=== PATIENT | male | born 1945 | race Caucasian/White ===

== ENCOUNTER 2018-02-27 12:42 | Observation (INO) | payer MEDICARE ==
[~2018-02-27 12:42] MED LIST: Iopamidol 370 76% 100 ML VIAL ONE
[2018-02-27] MEDS ORDERED: Nitroglycerin 2% Ointment 1 INCH/1 GM Packet ONE (13:12)
[2018-02-27 13:19] LABS: Band 1 % (5-11); Eosinophils 1 % (0-10); Hemoglobin 14.8 g/dL (14.0-18.0); Lymphocytes 13 % (21-51); MDiff Complete? YES; Mean Corpuscular HGB CONC 32.9 g/dL (32.0-36.0); Mean Corpuscular Hemoglobin 30.1 pg (27.0-31.0); Mean Corpuscular Volume 91.4 fL (78.0-98.0); Mean Platelet Volume 8.7 fL (7.4-10.4); Monocytes 8 % (0-10); Neutrophil 70 % (42-75); PLT Morphology Comment Appears Adequate; Platelet Count 229 thou/uL (130-400); RBC Distribution Width 12.4 % (11.5-14.5); Reactive Lymphocytes 6 % (0-10); Red Blood Cell (RBC) Count 4.93 mill/uL (4.70-6.10); White Blood Cell (WBC) Count 7.5 thou/uL (4.8-10.8)
[2018-02-27 13:25] LABS: ALT (SGPT) 13 U/L (8-55); AST (SGOT) 13 U/L (5-34); Albumin 3.8 g/dL (3.4-4.8); Alkaline Phosphatase 50 U/L (40-150); Anion Gap 10 mmol/L (10-20); BUN (Urea Nitrogen) 10 mg/dL (8.4-25.7); Bilirubin, Total 0.5 mg/dL (0.2-1.2); CKMB 1.6 ng/mL (0-6.6); Calc. Creatinine Clearance 0 mL/min (70-130); Calcium 9.2 mg/dL (7.8-10.44); Carbon Dioxide 25 mmol/L (23-31); Chloride 108 mmol/L (98-107); Estimated GFR-MDRD Greater than 90; Globulin 2.8 g/dL (2.4-3.5); Glucose 124 mg/dL (80-115); Lipase 13 U/L (8-78); Potassium 3.9 mmol/L (3.5-5.1); Protein, Total 6.6 g/dL (5.8-8.1); Sodium 139 mmol/L (136-145); Troponin I Less than 0.010 ng/mL (< 0.028)
[2018-02-27] MEDS ORDERED: diphenhydrAMINE 50 MG/ML VIAL ONE (13:29)
[2018-02-27] MEDS ORDERED: methylPREDNISolone Sod Succ/PF 125 MG/2 ML VIAL ONE (13:29)
[2018-02-27] MEDS ORDERED: Water For Inject, Bacteriostat 30 ML ONE (13:29)
[2018-02-27] MEDS ORDERED: Famotidine/PF 20 mg/2ml Vial ONE (13:29)
--- NOTE | 2018-02-27 13:59 | RAD ---
CHEST 1 VIEW: Date: 02/27/18 HISTORY: Chest pain. COMPARISON: Radiograph dated 07/29/13. FINDINGS: Multiple midline sternotomy wires. No confluent air space consolidation, pneumothorax, or effusion. N o acute osseous abnormality. IMPRESSION: No acute intrathoracic abnormality. POS: [facility]
--- NOTE | 2018-02-27 15:39 | CT ---
CT ANGIOGRAM OF THORACIC AND ABDOMINAL AORTA: HISTORY: Evaluate for aortic dissection. Chest pain. COMPARISON: None. TECHNIQUE: A CT angiogram of the thoracic and abdominal aorta is performed in the axial plane. Three-dimensiona l reformatted images are submitted for interpretation. FINDINGS: CHEST: No mediastinal mass, lymphadenopathy, or hematoma. heart size is within normal limits. No p ericardial fluid. There is evidence of previous CABG. Trachea and central bronchi are patent. There is scarring in the right upper lobe. Dependent atelec tatic changes. No consolidation or masses. ABDOMEN: Unremarkable gallbladder. Appropriate arterial phase enhancement of the liver, spleen, pelayo creas, and adrenal glands. No gastrohepatic, retrocrural, or periportal lymphadenopathy. No mesenteric mass, lymphadenopathy, free air, or free fluid. Symmetric attenuation of the psoas muscles. Limited evaluation of the alimentary canal by lack of oral contrast. Fat attenuation in the third po rtion of the duodenum and in the fourth portion of the duodenum, likely due to intraluminal lipomas. No evidence of bowel obstruction. The ileocecal junction is normal. Normal caliber appendix. The visualized colon is unremarkable. CT ANGIOGRAM: The ascending thoracic aorta measures 3.7 cm anterior-posterior x 3.8 cm mediolateral. The aortic arch, descending thoracic aorta, abdominal aorta, and aortic bifurcation have an overall normal caliber. No periaortic fat stranding. There is mild atherosclerosis involving the distal ab dominal aorta and the aortic bifurcation. The aortic root is unremarkable. 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 The visualized subclavian arteries and the great vessels of the neck ar e unremarkable. Of note, the right vertebral artery is not appreciated. There is appropriate enhancement in the luminal diameter of the celiac artery origin, the superior me senteric artery origin, the inferior mesenteric artery origin, and the bilateral renal artery ostia. Solitary left and right renal artery. Though there is appropriate enhancement in the luminal diameter of the superior mesenteric artery alex gin, there is a significant noncalcified plaque in the proximal superior mesenteric artery with resul tant moderate to severe stenosis, best demonstrated on the sagittal images. Distal to this plaque, t he branches of the superior mesenteric artery are patent. There are degenerative changes of the spine with vacuum disk phenomenon at multiple levels. IMPRESSION: 1. No evidence of aneurysm or dissection. 2. 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 POS: [facility]
[2018-02-27 17:03] LABS: Troponin I Less than 0.010 ng/mL (< 0.028)
[2018-02-27 18:17] VITALS: BMI 32.3
[2018-02-27] MEDS ORDERED: Nitroglycerin 0.4 MG TAB (25 Tab Bottle) SL PRN (18:38)
[2018-02-27] MEDS ORDERED: Ondansetron HCl/PF 4 MG/2 ML Vial IVP PRN (18:47)
[2018-02-27] MEDS ORDERED: Acetaminophen 325 MG TAB PO PRN (18:47)
[2018-02-27] MEDS ORDERED: Ondansetron ODT 4 MG TAB PO PRN (18:47)
[2018-02-27] MEDS ORDERED: Enoxaparin Sodium 40 MG/0.4 ML SYRINGE SC SCH (18:47)
[2018-02-27] MEDS ORDERED: traMADol HCl 50 MG TAB PO PRN ×2 (19:14→19:15)
[2018-02-27 19:21] LABS: Bilirubin Negative (Negative); Blood, Urine Large (Negative); Clarity CLEAR (Clear); Glucose, Urine (Dipstick) Negative (Negative); Leukocyte Negative (Negative); Nitrite Negative (Negative); Protein, Urine (Dipstick) Negative (Neg-Trace); Urobilinogen 0.2 mg/dL (0.2-1.0); pH, Urine 5.5 (5.0-9.0)
[2018-02-27 19:23] LABS: Bacteria/HPF None Seen HPF (None Seen); Hyaline Casts/LPF 0-3 HYALINE CAST LPF (0-3 Hyaline); RBC/HPF GREATER THAN 50-TNTC HPF (0-3); Squamous Epithelial None Seen HPF (0-3); WBC/HPF 0-3 HPF (0-3)
[2018-02-27 20:01] LABS: CKMB 1.7 ng/mL (0-6.6); Troponin I Less than 0.010 ng/mL (< 0.028)
[2018-02-27] MEDS ORDERED: Polyethylene Glycol 3350 17 GM Packet PO PRN (20:34)
[2018-02-27] MEDS ORDERED: Nitroglycerin 2% Ointment 1 INCH/1 GM Packet TOP SCH (23:59)
[2018-02-28] MEDS ORDERED: Levothyroxine Sodium 125 MCG TAB PO SCH (06:00)
[2018-02-28 06:34] LABS: #Lymphocytes 0.9 thou/uL (1.20-3.40); #Monocytes 0.1 thou/uL (0.11-0.59); #Neutrophils 7.1 thou/uL (1.40-6.50); %Basophils 0.3 % (0.0-1.0); %Eosinophils 0.1 % (0.0-10.0); %Lymphocytes 10.9 % (21.0-51.0); %Monocytes 1.2 % (0.0-10.0); %Neutrophils 87.5 % (42.0-75.0); Hemoglobin 14.9 g/dL (14.0-18.0); Mean Corpuscular HGB CONC 32.7 g/dL (32.0-36.0); Mean Corpuscular Hemoglobin 31.1 pg (27.0-31.0); Mean Corpuscular Volume 95.2 fL (78.0-98.0); Mean Platelet Volume 9.3 fL (7.4-10.4); Platelet Count 243 thou/uL (130-400); RBC Distribution Width 13.2 % (11.5-14.5); Red Blood Cell (RBC) Count 4.77 mill/uL (4.70-6.10); White Blood Cell (WBC) Count 8.2 thou/uL (4.8-10.8)
[2018-02-28 06:44] LABS: Anion Gap 13 mmol/L (10-20); BUN (Urea Nitrogen) 14 mg/dL (8.4-25.7); Calc. Creatinine Clearance 110 mL/min (70-130); Calcium 9.3 mg/dL (7.8-10.44); Carbon Dioxide 24 mmol/L (23-31); Cardiac Risk 5.5 (Less than 4.5); Chloride 107 mmol/L (98-107); Cholesterol 285 mg/dl (< 200 Desired); Estimated GFR-MDRD 89; Glucose 150 mg/dL (80-115); HDL Cholesterol 52 mg/dL (>60 Neg Risk); LDL Cholesterol, Calculated 213 mg/dL; Magnesium 2.3 mg/dL (1.6-2.6); Potassium 4.1 mmol/L (3.5-5.1); Sodium 140 mmol/L (136-145); Triglycerides 102 mg/dL (Less than 150)
[2018-02-28 06:47] LABS: CKMB 1.1 ng/mL (0-6.6); Troponin I Less than 0.010 ng/mL (< 0.028)
[2018-02-28 08:03] VITALS: TEMP 98.6
[2018-02-28] MEDS ORDERED: Clopidogrel Bisulfate 75 MG TAB PO SCH (09:00)
[2018-02-28] MEDS ORDERED: Enoxaparin Sodium 40 MG/0.4 ML SYRINGE SC SCH (09:00)
[2018-02-28] MEDS ORDERED: Aspirin 81 mg Enteric Coated Tablet PO SCH (09:00)
[2018-02-28] MEDS ORDERED: Amlodipine 5 MG TAB PO SCH (09:00)
[2018-02-28] MEDS ORDERED: Finasteride 5 MG TAB PO SCH (09:00)
[2018-02-28 10:41] VITALS: BP 140/76
--- NOTE | 2018-02-28 10:47 | HP ---
DATE OF ADMISSION: 02/27/2018 PRIMARY CARE PHYSICIAN: Monica Huerta M.D. PRIMARY ROLL EXAMINER: Dr. Rafa Medrano. TIME OF SERVICE: 18:00. CHIEF COMPLAINT: Chest pain. HISTORY OF PRESENT ILLNESS: Mr. Damian is a pleasant 72-year-old white male with history of known c oronary artery disease. Last heart catheterization was back in 2013. He had a diffuse disease that was not amenable to stenting. Medical management was initiated. He had last stress test about 1 yea r ago at Dr. Medrano' his office that was "clean." The patient with normal state of health. He de cided to go out to mow the grass and after coming back in developed some chest pressure. About 30 mi nutes later, he developed some drenching cold sweats, took a sublingual nitroglycerin and completely went away. He did well through Tuesday, however, on Tuesday started having more chest pressure. That persisted until Tuesday morning, so he decided into this hospitalization ER for evaluation. There workup was negative and we were called for admission. On arrival, the patient is pain free except for occasional episodes, short lasting and self-limited t hat feels like a 10 pound weight sitting on his chest. Denies any shortness of breath, but does have known anxiety and feels like that might be a panic attack. No other current complaints. Denies fevers or chills. No nausea or vomiting. No diarrhea or constipation. The patient does comp caitlin of some flank tenderness on the left with some burning sensation that comes around to the left. He started having a little bit of blood in his urine when he arrived to the [facility] ER . No history of renal stones. PAST MEDICAL HISTORY: 1. Coronary artery disease. 2. History MO in 2013. 3. Hypothyroidism. 4. Hyperlipidemia. 5. Hypertension. 6. Cerebrovascular disease with stroke x3 in 2000 and 2003. 7. Anxiety. PAST SURGICAL HISTORY: Coronary artery bypass grafting x5 vessels in 2006. PTCA 07/2013. Last PET stress test was out one year ago was negative. HOME MEDICATIONS: Isosorbide mononitrate 60 mg p.o. daily, aspirin 81 mg daily, levothyroxine 125 mg daily, metoprolol XL 25 mg p.o. b.i.d., sublingual nitroglycerin p.r.n., Protonix 40 mg daily, trama dol half tablet every 6 hours as needed, amlodipine 5 mg daily, finasteride 5 mg daily, Plavix 75 mg daily and Ranexa 500 mg p.o. b.i.d. ALLERGIES: IODINE causes hives, but tolerated CT angio without problems. FAMILY HISTORY: Negative for clotting or bleeding disorder. No immune dysfunction or premature niranjan nary disease. SOCIAL HISTORY: Significant for past tobacco, but quit more than 10 years ago. Lives at home with h is . REVIEW OF SYSTEMS: All systems reviewed and negative except as stated in HPI. PHYSICAL EXAMINATION: VITAL SIGNS: Temperature 97.8, pulse 69, blood pressure 153/70, respiratory rate 12, satting 97% on room air. GENERAL: He is awake. He is alert. He is oriented x3. Well-developed, well-nourished older white male who appears age appropriate. He appears to be zero distress. HEENT: Normocephalic, atraumatic. Pupils equal, round, react bilaterally. Mucous membranes moist. No visible lesion. No thrush. NECK: Supple. No lymphadenopathy, no JVD, no thyromegaly. He has no delay carotid upstrokes. He h as no bruits. LUNGS: Clear. No wheezes, no rales, no rhonchi. Good symmetrical chest excursion. No prolonged ex piratory phase. CARDIOVASCULAR: Normal S1, S2. No S3, S4. Does have holosystolic murmurs present at the apex and t he right lower sternal border. ABDOMEN: Soft, it is nontender, nondistended, no mass, no organomegaly. He has no CVA tenderness. EXTREMITIES: No cyanosis, no clubbing. He has no edema. I cannot palpate pulses. His feet are war m. SKIN: Warm, moist, and well perfused. Capillary refill 2-3 seconds. He has no rash or lesions. MUSCULOSKELETAL: Normal to inspection. Large joints appear normal. There is no evidence of inflamm ation or palpable effusion. NEUROLOGIC: Cranial nerves II-XII are grossly intact. There are no focal deficits. Normal speech a nd 5/5 strength in all 4 extremities. LABORATORY DATA AND IMAGING DATA: Sodium 139, potassium 3.9, chloride 108, bicarbonate 25, BUN 10, c reatinine 0.78, glucose 124, calcium 9.2. Liver function completely within normal limits. CBC showed white count 7.5, hemoglobin 14.8, hematocrit 45.1, platelet count is 229,000. He has a no rmal differential. CK-MB was normal at 1.6, troponin I was undetectable x2 less than 0.010. CT mckenzie ogram was negative. No mention of any renal issues. ASSESSMENT AND PLAN: 1. Chest pain. The patient with known coronary artery disease, inoperable per catheterization on . We placed him in observation with serial cardiac biomarkers. Dr. Medrano was present in morning. We will schedule him for a stress test in case he needs one however, I think given his hi story of known disease that this may not be needed. We will continue his home medications otherwise and follow up with Dr. Medrano' recommendations. 2. Hypothyroidism. Continue with levothyroxine. 3. Hypertension. Continue his home medications. 4. Hyperlipidemia. He is not currently on any statin. We will check a fasting lipid profile in the morning. No history of cerebrovascular disease. 5. History of anxiety. 6. Benign prostatic hypertrophy on finasteride. 7. Acute hematuria. We will get a urinalysis to quantitate. Patient does not have any clots or dif ficulty urinating, passes normal. 8. BPH symptoms. We will likely leave this to outpatient workup, mostly develops ralph bleeding.
--- NOTE | 2018-02-28 10:51 | DIS ---
PRIMARY CARE PHYSICIAN: Dr. Monica Huerta PRIMARY PHYSICIAN SCRIBE: Dr. Rafa Medrano DATE OF ADMISSION: 02/27/2018 DATE OF DISCHARGE: 02/28/2018 DISCHARGE DIAGNOSES: 1. Chest pain. 2. Coronary artery disease. 3. Hypothyroidism. 4. Hyperlipidemia. 5. Hypertension. 6. History of cerebrovascular accident in the past. 7. Anxiety. CONSULTATIONS: None. PROCEDURES: None. BRIEF HISTORY AND PHYSICAL: Mr. Damian is a 72-year-old gentleman who developed chest pain 2 days p rior to admission. The initial episode lasted a short period of time, resolved and recurred on the d ay of admission so he came to the ER. Workup in the ER was negative. We were called for admission. HOSPITAL COURSE: The patient was seen and examined by me on transfer from [facility] ER t o the observation unit. He had no further chest pain. He was observed overnight. Telemetry was neg ative and serial cardiac biomarkers were completely undetectable. I spoke with Dr. Medrano this mo rning and reviewed the patient's inoperable coronary artery disease. He recommended medical manageme nt and follow up outpatient if he needed further workup or intervention that he would need a referral to [facility]. At this point, we recommend no further stress testing. The patient was stable for discharge with outpatient followup. PHYSICAL EXAMINATION: The patient was seen and examined on the day of discharge. Discharge plan and disposition was discussed with the patient face to face at the bedside. DISCHARGE MEDICATIONS: 1. Isosorbide mononitrate 60 mg daily. 2. Amlodipine 5 mg daily. 3. Aspirin 81 mg daily. 4. Plavix 75 mg daily. 5. Proscar 5 mg daily. 6. Levothyroxine 125 mcg daily. 7. Metoprolol succinate 25 mg p.o. b.i.d. 8. Sublingual nitro p.r.n. 9. Protonix 40 mg daily. 10. Ranexa 500 mg p.o. b.i.d. 11. Tramadol p.r.n. FOLLOWUP APPOINTMENTS: 1. Primary care physician in a week. 2. Dr. Medrano in 2-3 weeks. DISCHARGE ACTIVITY: Per cardiopulmonary limits. DISCHARGE DIET: Heart healthy recommended. DISCHARGE CONDITION: Stable. DISCHARGE DISPOSITION: He is being discharged home via private vehicle.
== END 2018-02-28 12:12 | disposition home or self-care (01) ==
LOC: SCSER 12:42 → 2SW 16:26
PROVIDERS: ADMIT Internal Medicine Infectious Disease; ATTEND Internal Medicine Infectious Disease
DX: R07.89 Other chest pain (principal); I25.10 Atherosclerotic heart disease of native coronary artery without angina pectoris; I25.2 Old myocardial infarction; E03.9 Hypothyroidism, unspecified; E78.5 Hyperlipidemia, unspecified; F41.9 Anxiety disorder, unspecified; N40.0 Benign prostatic hyperplasia without lower urinary tract symptoms; R31.9 Hematuria, unspecified; Z87.891 Personal history of nicotine dependence; Z86.73 Personal history of transient ischemic attack (TIA), and cerebral infarction without residual deficits; Z79.82 Long term (current) use of aspirin; Z79.02 Long term (current) use of antithrombotics/antiplatelets; Z79.899 Other long term (current) drug therapy; Z91.041 Radiographic dye allergy status; Z95.1 Presence of aortocoronary bypass graft; Z98.890 Other specified postprocedural states
CPT/HCPCS: 71045; 71275; 80048; 80053; 80061; 81001; 82553 ×3; 83690; 83735; 84484 ×3; 85025 ×2; 93005; 94760; 96374; 96375; 99285; G0378 ×2; 36415; J1200; J2930; S0028

== ENCOUNTER 2018-04-17 13:17 | Outpatient (CLI) | payer MEDICARE ==
[2018-04-17] MEDS ORDERED: Iopamidol 370 76% 100 ML VIAL ONE (15:05)
--- NOTE | 2018-04-17 15:59 | CT ---
CT ARTERIOGRAM NECK WITH IV CONTRAST AND 3D MIP IMAGING: HISTORY: Vascular disease. Carotid stenosis. FINDINGS: Postoperative changes of the mediastinum with cardiac bypass procedure are partially visualized. The re is an aberrant origin of the right subclavian artery, arising from the distal aortic arch and pass ing posterior to the esophagus. Good contrast flow into the carotid arteries and left vertebral lynnette ry. Significant plaque within the proximal left vertebral artery with approximately 50% stenosis at the level of T2. Minimal flow into the right vertebral artery. At the right carotid bifurcation, there is prominent calcification and noncalcified plaque with a dylan rt-segment focus of greater than 90% stenosis. Good flow into the intracranial system. On the left, prominent plaque and calcification at the carotid bifurcation. Short-segment focus of a pproximately 70% stenosis. IMPRESSION: 1. Prominent atherosclerosis. Stenoses at each proximal internal carotid artery, very severe on the right and moderate to severe on the left. 2. Low-grade stenosis of the proximal left vertebral artery. 3. 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 POS: [facility]
== END 2018-04-17 13:18 | disposition home or self-care (01) ==
LOC: CT 13:17
PROVIDERS: ATTEND Thoracic Surgery (Cardiothoracic Vascular Surgery)
DX: I65.23 Occlusion and stenosis of bilateral carotid arteries (principal); I70.90 Unspecified atherosclerosis; I65.02 Occlusion and stenosis of left vertebral artery
CPT/HCPCS: 70498; 82565

== ENCOUNTER 2018-11-19 18:51 | Inpatient (IN) | payer MEDICARE ==
[2018-11-19 19:08] LABS: #Basophils 0.1 thou/uL (0.0-0.2); #Eosinphils 0.3 thou/uL (0.0-0.7); #Lymphocytes 1.4 thou/uL (1.20-3.40); #Monocytes 0.7 thou/uL (0.11-0.59); #Neutrophils 6.5 thou/uL (1.40-6.50); %Basophils 0.6 % (0.0-1.0); %Eosinophils 3.8 % (0.0-10.0); %Lymphocytes 15.4 % (21.0-51.0); %Monocytes 7.8 % (0.0-10.0); %Neutrophils 72.5 % (42.0-75.0); Hemoglobin 15.5 g/dL (14.0-18.0); Mean Corpuscular HGB CONC 33.9 g/dL (32.0-36.0); Mean Corpuscular Hemoglobin 31.1 pg (27.0-31.0); Mean Corpuscular Volume 91.9 fL (78.0-98.0); Mean Platelet Volume 9.4 fL (7.4-10.4); Platelet Count 197 thou/uL (130-400); RBC Distribution Width 12.8 % (11.5-14.5); Red Blood Cell (RBC) Count 4.97 mill/uL (4.70-6.10)
[2018-11-19 19:15] LABS: PTT 25.8 SEC (22.9-36.1)
[2018-11-19 19:16] LABS: Prothrombin Time 12.8 SEC (12.0-14.7)
[2018-11-19 19:21] LABS: ALT (SGPT) 14 U/L (8-55); AST (SGOT) 14 U/L (5-34); Albumin 4.2 g/dL (3.4-4.8); Alkaline Phosphatase 57 U/L (40-150); Anion Gap 13 mmol/L (10-20); BUN (Urea Nitrogen) 12 mg/dL (8.4-25.7); Bilirubin, Total 0.4 mg/dL (0.2-1.2); CK (CPK) 102 U/L (30-200); Calc. Creatinine Clearance 0 mL/min (70-130); Calcium 9.5 mg/dL (7.8-10.44); Carbon Dioxide 23 mmol/L (23-31); Chloride 103 mmol/L (98-107); Estimated GFR-MDRD 80; Glucose 152 mg/dL (83-110); Potassium 3.9 mmol/L (3.5-5.1); Protein, Total 7.2 g/dL (5.8-8.1); Sodium 135 mmol/L (136-145)
[2018-11-19 19:46] LABS: CKMB 3.6 ng/mL (0-6.6)
--- NOTE | 2018-11-19 19:49 | RAD ---
CHEST ONE VIEW: HISTORY: Chest pain. COMPARISON: Chest radiograph from 02/27/2018. FINDINGS: Heart size is mildly enlarged. There is mild atelectasis in both lung bases. No pneumothorax. No e ffusion. No acute osseous abnormality. Multiple midline sternotomy wires. IMPRESSION: No acute intrathoracic abnormality. POS: [facility]
[2018-11-19] MEDS ORDERED: Mag-Al 1200 mg/1200 mg/30 ML UDCUP ONE (19:58)
[2018-11-19] MEDS ORDERED: Lidocaine Viscous Sol 2% 15 ml UD Cup ONE (19:58)
[2018-11-19] MEDS ORDERED: Ondansetron PF 4 MG/2 ML Vial IVP PRN (20:09)
[2018-11-19] MEDS ORDERED: Ondansetron ODT 4 MG TAB PO PRN (20:09)
[2018-11-19] MEDS ORDERED: Acetaminophen 325 MG TAB PO PRN (20:09)
[2018-11-19 21:43] VITALS: BMI 33.7
[2018-11-19] MEDS ORDERED: Heparin 10,000 UNITS/ 10 ML VIAL ONE (22:25)
[2018-11-19] MEDS ORDERED: Metoprolol Tartrate 5 MG/5 ML VIAL ONE (22:25)
[2018-11-19] MEDS ORDERED: Nitroglycerin 50 MG/250 ML BOT ONE (22:25)
[2018-11-19] MEDS ORDERED: Nitroglycerin 50 MG/250 ML BOT 250 ML IVPB SCH (22:30)
[2018-11-19] MEDS ORDERED: Heparin 10,000 UNITS/ 10 ML VIAL SLOW IVP SCH (22:30)
[2018-11-19] MEDS ORDERED: Heparin 25,000 units/D5W 500 ML IV SCH (22:30)
--- NOTE | 2018-11-19 22:44 | HP ---
PRIMARY CARE DOCTOR: Mitch Arora MD. CODE STATUS: Full code. TIME OF EVALUATION: 9:00 p.m. CHIEF COMPLAINT: Ongoing chest pain. HISTORY OF PRESENT ILLNESS: This is a 73-year-old male patient who has significant coronary artery disease, status post CABG and multiple interventions with chronic angina. Today, he came with ongoing chest pain that started around 1:00 p.m. with no clear triggers, no alleviating factors. The patient came to the ER, had some significant EKG changes. Dr. Arreola has seen the patient due to severe chronic coronary artery disease. No further intervention is the best choice for this patient. The patient has been placed on nitroglycerin drip and heparin. We will continue for now. We will place the patient in ICU and will continue to monitor overnight. We will follow recommendation with Dr. Arreola if symptoms are severe. REVIEW OF SYSTEMS: CONSTITUTIONAL: No fever, chills, generalized weakness. RESPIRATORY: No cough, sputum production, or shortness of breath. CARDIOVASCULAR: The patient has chest pain. No palpitations. GASTROINTESTINAL: No nausea, no vomiting, diarrhea, or abdominal pain. DIGITAL MEDIA ASSOCIATE: No dizziness, headache, or feeling lightheaded. GENITOURINARY: No burning on urination. EXTREMITIES: No leg swelling. All other systems were reviewed and negative except for the findings mentioned above. PAST MEDICAL HISTORY: Positive for coronary artery disease, hypothyroidism, hyperlipidemia, hypertension, and stroke. PAST SURGICAL HISTORY: Cardiac cath in the past, CABG x5 vessels. PSYCHIATRIC HISTORY: Includes anxiety. FAMILY HISTORY:Reviewed and no contributory for current presentation. SOCIAL HISTORY: No alcohol or drugs. The patient was a former smoker, quit more than 10 years ago. He lives at home with family. KNOWN ALLERGIES: 1. Iodine. 2. Shellfish. REPORTED MEDICATIONS: 1. Levothyroxine. 2. Metoprolol. 3. Aspirin. 4. Atorvastatin. 5. Isosorbide. 6. Tramadol. 7. Pantoprazole. 8. Ranexa. 9. Plavix. 10. Finasteride. 11. Nitroglycerin. PHYSICAL EXAMINATION: VITAL SIGNS: Blood pressure 183/105 with heart rate of 76, respiratory rate was 18, temperature 98.1 pain was 8, oxygen saturation was 99% on room air. GENERAL: The patient is alert, oriented, and not in acute distress. HEENT: Eyes, normal conjunctivae. ENT: Moist oral mucosa. Anicteric. NECK: No JVD. RESPIRATORY: Bilateral air entry. No rales. No wheezes. Symmetric expansion. CARDIOVASCULAR: Normal rate, regular rhythm. No murmurs. No edema. ABDOMEN: Soft. Normal bowel sounds. MUSCULOSKELETAL: Baseline range of motion and strength. No tenderness. SKIN: Warm, intact. No pallor. No rash. No redness. Capillary refill seems to be intact. NEURO: No evidence of any new focal weakness. Cranial nerves seem to be intact , PSYCH: Patient is in good mood. No anxiety. Optimal judgment. IMAGING STUDIES: EKG was reviewed. The patient has complete RBBB, ST elevation in lead 3, aVF with reciprocal changes. Chest x-ray was reviewed. The patient has no acute intrathoracic abnormalities. LABORATORY DATA: Reviewed. The patient has white count of 9.0, hemoglobin 15.5 , MCV 91.9, platelet count 197. PT 12.8, INR 1.0, PTT 25.8. Chemistries: Sodium 135, potassium 3.9, chloride 103, carbon dioxide 23, anion gap 13, BUN 12, creatinine 0.93, GFR 80, glucose 152, and calcium 9.5. LFTs were negative. Troponin 0.030. ASSESSMENT AND PLAN: The patient will be placed in the hospital with the following medical problems: 1. Acute coronary syndrome. possible stemi, The patient has angina; however, he has significant chronic coronary artery disease.as discussed with Dr. Arreola, we will treat him medically since there is not much that can be done with intervention at this point. We will follow recommendations. We will continue nitroglycerin and heparin. We will place the patient in ICU, reconcile home medications. 2. Hyperlipidemia. Reconcile home medications. Low-cholesterol diet is advised. 3. Hyponatremia, sodium 135. This is mild, no need for any acute intervention. We will monitor, and we will treat accordingly. 4. Hyperglycemia. No history of diabetes, this is likely secondary to acute physical distress. We will monitor and we will treat accordingly. 5. Hypothyroidism. Continue hormone replacement. 6. Deep venous thrombosis prophylaxis. Job ID: [id number] [id number]
[2018-11-19 22:56] LABS: Troponin I 0.551 ng/mL (< 0.028)
[2018-11-19] MEDS: Sodium Chloride 0.9% 1,000 ML IV SCH (23:46)
--- NOTE | 2018-11-20 00:16 | CON ---
DATE OF CONSULTATION: 11/19/2018 The patient is being seen in the emergency room suffering with possible rro-[id number] elevation myocardial infarction. HISTORY OF PRESENT ILLNESS: This is a 73-year-old gentleman, who has undergone bypass surgery in, I believe, 2003 due to severe 3-vessel coronary artery disease, had a repeat cardiac catheterization in 2013, which showed the RANDOLPH to the LAD to be patent, but there was distal anastomosis as well as 50% to 60% stenosis. He had an occluded URSULA to the right coronary artery. The [place] right coronary artery was also occluded. The saphenous vein graft to the first diagonal branch was occluded. The saphenous vein graft to the second diagonal branch appeared to be patent. However, there was some staining in the vein graft, it was somewhat suspicious for recent occlusion. The saphenous vein graft to the obtuse marginal branch of the left circumflex was patent. However, there was distal disease noted in the obtuse marginal branch beyond the anastomosis of 70% to 80%. The [place] vessel showed the left main to have no significant stenosis. The left anterior descending artery had a 90% stenosis with very heavy calcifications near the ostium and then I believe the mid left anterior descending artery was 100% occluded, the diagonal branch that was not bypassed, had a 70% to 80% stenosis in the proximal area and was too small to intervene upon. The left circumflex was 100% occluded in the proximal area and also had small vessels in the distal area. The left ventricular ejection fraction at that time was about 50% to 55% with hypokinesis along the basal inferior wall and it appeared that the patient had suffered an inferior myocardial infarction in the past. However, he denies ever having a myocardial infarction. He did undergo stress testing he says in the office and was told everything was fine. However, he has not had any recent stress test that I can find. He has had some venous studies. He has been found to have a right carotid artery stenosis. He was advised to undergo a carotid endarterectomy; however, he has postponed this saying that his is undergoing therapy and he needs to take her back and forth to the doctor, so he has postponed his right carotid endarterectomy. Today, he was at home, he made himself a tomato sandwich with [employer] and then noticed later on that he started having some chest discomfort. He took some liquid antacids, but he said the pain was resolved somewhat but then came back. He then took nitroglycerin with little relief. He said the pain became worse and went to his jaw. He describes as being some right lower anterior discomfort in his chest area and also in the epigastric area. He then presented to the emergency room. EKG shows a sinus rhythm with T-wave inversions in V1 through V3, suspicious for some anterior ischemia. There was no ST-segment elevation noted. He appears to have Q-waves in leads III and AVF. His cardiac enzymes show a troponin I of 0.03. He has been placed on nitroglycerin. His blood pressure was elevated at 157/97. Repeat EKG is unchanged. His CPK-MB was 3.6. At this time, he also has been given morphine, I think he has been given 8 mg of morphine since being picked up by EMS. He is still awake. He does appear to be actually very comfortable, despite saying that he has chest pain 7/10. He was not diaphoretic. There is no nausea or vomiting. He was also not short of breath. He denied any other symptoms. PAST MEDICAL HISTORY: Significant for coronary artery disease as outlined above. He had a myocardial infarction supposedly in 2013, which he denies. He has had bypass surgery. He has also had a CVA x3 in 2000 and 2003 according to the records. He also has hyperlipidemia, hypertension, hypothyroidism, and has a history of anxiety. He himself was suspicious that he may have had a panic attack the last time he was in the hospital. He did come in previously in 2018, had similar chest discomfort and then was actually discharged from the hospital. He said he was still having pain when he left the hospital, but by the time he got home, the pain had resolved. MEDICATIONS: Include isosorbide mononitrate, aspirin a day, levothyroxine, metoprolol, sublingual nitroglycerin as needed, tramadol, Protonix. He has been on finasteride in the past. He is on Ranexa and Plavix. ALLERGIES: HE IS ALLERGIC TO IODINE, BUT APPARENTLY HAS HAD A CT SCAN PREVIOUSLY WITHOUT ANY SIGNIFICANT PROBLEMS. SOCIAL HISTORY: He has smoked in the past, but stopped more than 10 or 15 years ago. He has no significant alcohol use. He lives with his . FAMILY HISTORY: Unremarkable for any early heart disease. REVIEW OF SYSTEMS: He mainly complained of the chest discomfort which started today. Otherwise, he denies any HEENT complaints, GI complaints. He has had some discomfort today, but does not usually have discomfort. He has had no significant complaints, musculoskeletal complaints, or neurologic complaints. PHYSICAL EXAMINATION: GENERAL: Reveals an elderly gentleman. VITAL SIGNS: Blood pressure 157/97, heart rates in 70s, shows a sinus rhythm, O2 saturation 98%, and respiratory rate is about 16. HEENT: Shows head to be normocephalic and atraumatic. He does have a significant right carotid bruit noted. CHEST: Clear to auscultation. CARDIOVASCULAR: Reveals a regular rate and rhythm at this time with normal S1, S2. There was no S3, S4. I do not hear any significant murmurs, heaves, thrills, bruits, or rubs. He has a well-healed midline surgical incision after median sternotomy. ABDOMEN: Actually soft and nontender. Positive bowel sounds are present. I cannot elicit any masses. EXTREMITIES: Showed no clubbing, cyanosis, or edema. Pedal pulses are present. NEUROLOGIC: Appears to be fully intact. LABORATORY AND DIAGNOSTIC FINDINGS: His EKG shows a normal sinus rhythm with an incomplete right bundle-branch block with T-wave inversions which may be related to the bundle branch block. I do not have any more recent EKGs. He had some EKGs back in 2012, which did show T-wave inversion in V1 and V2 with also evidence of old inferior myocardial infarction. There is no ST-segment elevation at this time. Given the fact that the patient has most likely inoperable and non-stentable coronary artery disease, we will continue to treat him medically. We will try to lower the blood pressure, give him nitroglycerin and also we will start him on a heparin drip. It is unlikely that he will be a candidate, since even in 2013 he had severe inoperable and non-stentable vessels. We will continue to monitor him. We will also try GI cocktail to see if this will relieve some of his symptoms. He will be admitted to the hospital service and Dr. Medrano will take over his care tomorrow and hopefully his pain will resolve. IMPRESSION: 1. Severe 3-vessel coronary artery disease with possible [id number] elevation myocardial infarction. We will trend cardiac enzymes. We will treat him medically as noted above. 2. History of hypertension. We will try to lower this also by nitroglycerin. We will resume his other medications when he is taking p.o. 3. History of hyperlipidemia. We will continue statin medications. I do not see that he is actually taking the statin at this time. We will need to initiate some type of statin medication unless he is intolerant. He did undergo apparently a stress test in 2017 according to the records and to the patient, but I do not have his records and apparently this was unremarkable for any evidence of ischemia. We will continue to monitor the patient very carefully. Job ID: [id number]
[2018-11-20] MEDS: Calcium Carbonate 500 MG ChewTAB PO PRN ×3 (01:13→04:20)
[2018-11-20 02:37] LABS: Troponin I 2.832 ng/mL (< 0.028)
[2018-11-20] MEDS: Sodium Chloride 0.9% 1,000 ML IV SCH ×2 (05:58→13:50)
[2018-11-20 06:02] LABS: #Eosinphils 0.2 thou/uL (0.0-0.7); #Lymphocytes 1.7 thou/uL (1.20-3.40); #Monocytes 0.7 thou/uL (0.11-0.59); #Neutrophils 7.8 thou/uL (1.40-6.50); %Basophils 0.4 % (0.0-1.0); %Eosinophils 2.2 % (0.0-10.0); %Lymphocytes 15.8 % (21.0-51.0); %Neutrophils 74.6 % (42.0-75.0); Hemoglobin 16.3 g/dL (14.0-18.0); Mean Corpuscular HGB CONC 32.9 g/dL (32.0-36.0); Mean Corpuscular Hemoglobin 31.6 pg (27.0-31.0); Mean Corpuscular Volume 96.2 fL (78.0-98.0); Mean Platelet Volume 10.2 fL (7.4-10.4); Platelet Count 199 thou/uL (130-400); RBC Distribution Width 12.9 % (11.5-14.5); Red Blood Cell (RBC) Count 5.16 mill/uL (4.70-6.10); White Blood Cell (WBC) Count 10.5 thou/uL (4.8-10.8)
[2018-11-20 08:35] LABS: Anion Gap 17 mmol/L (10-20); BUN (Urea Nitrogen) 9 mg/dL (8.4-25.7); Calc. Creatinine Clearance 116 mL/min (70-130); Calcium 9.4 mg/dL (7.8-10.44); Carbon Dioxide 20 mmol/L (23-31); Chloride 103 mmol/L (98-107); Estimated GFR-MDRD Greater than 90; Glucose 141 mg/dL (83-110); Potassium 4.4 mmol/L (3.5-5.1); Sodium 136 mmol/L (136-145)
[2018-11-20] MEDS ORDERED: Pantoprazole 40 MG VIAL IVP SCH (09:00)
[2018-11-20] MEDS ORDERED: Enoxaparin Sodium 40 MG/0.4 ML SYRINGE SC SCH (09:00)
[2018-11-20] MEDS ORDERED: Iopamidol 370 76% 50 ML VIAL FS ONE (10:29)
[2018-11-20] MEDS ORDERED: Iopamidol 370 76% 100 ML VIAL ONE (10:29)
[2018-11-20 10:35] LABS: CKMB 258.8 ng/mL (0-6.6); Troponin I 12.393 ng/mL (< 0.028)
[2018-11-20] MEDS ORDERED: Lidocaine 1% (PF) 30 ML VIAL ONE (10:55)
[2018-11-20] MEDS ORDERED: diphenhydrAMINE 50 MG/ML VIAL ONE (11:15)
[2018-11-20] MEDS ORDERED: Hydrocortisone Sod Succ/PF 100 mg/2 ml Vial ONE (11:15)
[2018-11-20] MEDS ORDERED: Ondansetron PF 4 MG/2 ML Vial ONE (11:16)
[2018-11-20] MEDS ORDERED: EPINEPHrine 1 MG/ML AMP ONE (11:30)
[2018-11-20] MEDS ORDERED: EPINEPHrine 1 MG/10 ML Abboject SYRINGE ONE (11:34)
[2018-11-20] MEDS ORDERED: hydrALAZINE 20 MG/ML VIAL ONE (11:44)
[2018-11-20] MEDS ORDERED: Heparin 10,000 UNITS/1 ML VIAL ONE (11:48)
[2018-11-20] MEDS ORDERED: Adenosine 6 MG/2 ML VIAL ONE (11:50)
[2018-11-20] MEDS ORDERED: Verapamil 5 MG/2 ML VIAL ONE (11:56)
[2018-11-20] MEDS ORDERED: Nitroglycerin 100MG/250ML BOT 250 ML ONE (11:56)
[2018-11-20] MEDS ORDERED: Morphine 2 MG/ML SYRINGE ONE (11:58)
[2018-11-20] MEDS ORDERED: Fentanyl 100 MCG/2 ML VIAL ONE (12:01)
[2018-11-20] MEDS ORDERED: Midazolam HCl 2 mg/2 ml Vial ONE (12:01)
[2018-11-20] MEDS ORDERED: Zolpidem Tartrate 5 MG TAB PO PRN (12:18)
[2018-11-20] MEDS ORDERED: hydrALAZINE 20 MG/ML VIAL SLOW IVP PRN (12:18)
[2018-11-20] MEDS ORDERED: Senokot S 8.6-50 MG TAB PO PRN (12:18)
[2018-11-20] MEDS ORDERED: Diabetic Tussin 200 MG/10 ML UDCUP PO PRN (12:18)
[2018-11-20] MEDS ORDERED: Bisacodyl 5 MG TAB PO PRN (12:18)
[2018-11-20] MEDS ORDERED: Sodium Chloride 0.65% Nasal 44 ML BOT EA NARE PRN (12:18)
[2018-11-20] MEDS ORDERED: HYDROcodone/Acetaminophen 5/325 mg Tablet PO PRN (12:18)
[2018-11-20] MEDS ORDERED: Cepastat Lozenges 1 LOZ PO PRN (12:18)
[2018-11-20] MEDS ORDERED: Artificial Tears 18 DROP/0.9 ML EA EYE PRN (12:18)
[2018-11-20] MEDS ORDERED: Nitroglycerin 0.4 MG TAB (25 Tab Bottle) SL PRN ×2 (12:18→12:19)
[2018-11-20] MEDS ORDERED: Loratadine 10 MG TAB PO PRN (12:18)
[2018-11-20] MEDS ORDERED: Loperamide HCl 2 MG CAP PO PRN (12:18)
--- NOTE | 2018-11-20 12:18 | PDOC.PN ---
- Subjective Encounter Start Date: 11/20/18 Encounter Start Time: 09:45 -: old records requested/rev pt has substernal chest discomfort, no dyspnea, he is on NTG drip - Objective Resuscitation Status - Order Detail: 11/19/18 20:09 Resuscitation Status Routine Resuscitation Status: FULL: Full Resuscitation MAR Reviewed: Yes Vital Signs & Weight: Vital Signs (12 hours) Temp Pulse Ox 11/20/18 11:00 98.4 F 11/20/18 07:44 98 11/20/18 07:00 98.2 F 11/20/18 05:00 98.1 F Weight Weight 221 lb 9.033 oz Most Recent Monitor Data Heart Rate from ECG 70 NIBP 159/85 NIBP BP-Mean 109 Respiration from ECG 15 SpO2 99 I&O: 11/19/18 11/20/18 11/21/18 06:59 06:59 06:59 Intake Total 783 Output Total 1350 950 Balance -567 -950 Result Diagrams: 11/20/18 05:18 11/20/18 07:51 Radiology Reviewed by me: Yes (chest xray reviewed) EKG Reviewed by me: Yes (NSR) Phys Exam - Physical Examination Constitutional: NAD HEENT: PERRLA, moist MMs, sclera anicteric Neck: no JVD, supple Respiratory: no wheezing, no rales, no rhonchi Cardiovascular: RRR, no significant murmur, no rub Gastrointestinal: soft, non-tender, no distention, positive bowel sounds Musculoskeletal: no edema, pulses present Neurological: non-focal, normal sensation, moves all 4 limbs Lymphatic: no nodes Psychiatric: normal affect, A&O x 3 Skin: no rash, normal turgor Dx/Plan (1) NSTEMI (non-ST elevated myocardial infarction) Code(s): I21.4 - NON-ST ELEVATION (NSTEMI) MYOCARDIAL INFARCTION Status: Acute (2) CAD (coronary artery disease) Code(s): I25.10 - ATHSCL HEART DISEASE OF [place] CORONARY ARTERY W/O ANG PCTRS Status: Chronic (3) Dyslipidemia Code(s): E78.5 - HYPERLIPIDEMIA, UNSPECIFIED Status: Chronic (4) H/O: CVA (cerebrovascular accident) Code(s): Z86.73 - PRSNL HX OF TIA (TIA), AND CEREB INFRC W/O RESID DEFICITS Status: Chronic (5) Hypertension Code(s): I10 - ESSENTIAL (PRIMARY) HYPERTENSION Status: Chronic (6) Hypothyroidism Code(s): E03.9 - HYPOTHYROIDISM, UNSPECIFIED Status: Chronic (7) Obesity (BMI 30.0-34.9) Code(s): E66.9 - OBESITY, UNSPECIFIED Status: Chronic - Plan cont current plan of care * troponin rising, cardiology planning to do cardiac cath, will need preparation with meds in view of his iodine allergy * medication reviewed as below * symptomatic treatment * continue current optimum medical therapy. * home medication reconciled Review of Systems - Review of Systems ENT: negative: Ear Pain, Ear Discharge, Nose Pain, Nose Discharge, Nose Congestion, Mouth Pain, Mouth Swelling, Throat Pain, Throat Swelling, Other Respiratory: negative: Cough, Dry, Shortness of Breath, Hemoptysis, SOB with Excertion, Pleuritic Pain, Sputum, Wheezing Cardiovascular: chest pain. negative: palpitations, orthopnea, paroxysmal nocturnal dyspnea, edema, light headedness, other Gastrointestinal: negative: Nausea, Vomiting, Abdominal Pain, Diarrhea, Constipation, Melena, Hematochezia, Other Genitourinary: negative: Dysuria, Frequency, Incontinence, Hematuria, Retention , Other Musculoskeletal: negative: Neck Pain, Shoulder Pain, Arm Pain, Back Pain, Hand Pain, Leg Pain, Foot Pain, Other Skin: negative: Rash, Lesions, German, Bruising, Other - Medications/Allergies Allergies/Adverse Reactions: Allergies Allergy/AdvReac Type Severity Reaction Status Date / Time iodine Allergy Verified 11/19/18 21:48 Medications: Current Medications Acetaminophen (Tylenol) 650 mg PO Q4H PRN PRN Reason: Headache/Fever/Mild Pain (1-3) Al Hydroxide/Mg Hydroxide (Maalox) 30 ml PO Q4H PRN PRN Reason: Heartburn or Indigestion Calcium Carbonate (Tums) 500 mg PO PRN PRN PRN Reason: HEARTBURN/INDIGESTION Last Admin: 11/20/18 04:20 Dose: 500 mg Heparin Sodium (Porcine) (Heparin 1,000 Units/Ml (10 Ml)) 0 units SLOW IVP WILLCALL [facility]AJI Last Admin: 11/20/18 01:56 Dose: 2,595 unit Heparin Sodium/Dextrose (Heparin 25,000 Units/D5w 500 Ml) 500 mls @ 0 mls/hr IV INF SHAJI; Protocol Nitroglycerin/Dextrose (Nitroglycerin 50 Mg/250 Ml Bot) 250 mls @ 0 mls/hr IVPB INF [facility]I; Protocol Sodium Chloride (Normal Saline 0.9%) 1,000 mls @ 100 mls/hr IV .Q10H SHAJI Last Admin: 11/20/18 05:58 Dose: 1,000 mls Ondansetron HCl (Zofran Odt) 4 mg PO Q6H PRN PRN Reason: Nausea/Vomiting Ondansetron HCl (Zofran) 4 mg IVP Q6H PRN PRN Reason: Nausea/Vomiting Pantoprazole Sodium (Protonix) 40 mg IVP Q12HR SHAJI
[2018-11-20] MEDS ORDERED: traMADol HCl 50 MG TAB PO PRN (12:19)
[2018-11-20] MEDS ORDERED: Aggrastat 12.5 MG/250 ML 250 ML ONE (12:45)
[2018-11-20] MEDS ORDERED: Clopidogrel Bisulfate 300 MG TAB ONE (12:46)
[2018-11-20] MEDS ORDERED: Aggrastat 12.5 MG/250 ML 250 ML IVPB SCH (13:08)
--- NOTE | 2018-11-20 14:41 | CON ---
DATE OF CONSULTATION: 11/20/2018 CONSULTING PHYSICIAN: [facility]. REASON FOR CONSULTATION: CCU care. HISTORY OF PRESENT ILLNESS: This is a 73-year-old male, who developed acute midsternal chest pain after eating a tomato sandwich with pepper and garlic yesterday. He describes the pain as a 7/10. He has been placed on nitroglycerin drip. He is now experiencing warmness in his neck and his head from the nitroglycerin. He says the pain, however, is unchanged. PAST MEDICAL HISTORY: 1. Coronary artery disease. 2. Hypothyroid. 3. Hypertension. 4. Stroke. 5. Hyperlipidemia. PAST SURGICAL HISTORY: Previous cardiac catheterization and five-vessel bypass. SOCIAL HISTORY: Former smoker, quit more than 10 years ago. Lives at home with his . No alcohol use. No drugs. ALLERGIES: IODINE AND SHELLFISH. MEDICATIONS: Prior to admission; 1. Levothyroxine. 2. Metoprolol. 3. Aspirin. 4. Atorvastatin. 5. Isosorbide. 6. Tramadol. 7. Protonix. 8. Ranexa. 9. Plavix. 10. Finasteride. 11. Nitroglycerin. REVIEW OF SYSTEMS: Otherwise, negative. PHYSICAL EXAMINATION: VITAL SIGNS: Temperature 98.2, pulse 71, blood pressure 161/90, and O2 saturation 95%. HEENT: Unremarkable. NECK: No adenopathy, JVD, or bruits. LUNGS: Clear. CARDIAC: S1 and S2, regular, without murmur. ABDOMEN: Soft and nontender. EXTREMITIES: No edema. NEUROLOGIC: Intact. LABORATORY DATA: White blood cell count 10.5, hematocrit 49.6, and platelet count 199. Troponin 2.8. Sodium 136, potassium 4.4, chloride 103, CO2 of 20, BUN 9, creatinine 0.8, and glucose 140. IMAGING DATA: Chest x-ray shows normal heart size, sternal wires. No mass, effusion, or infiltrate. ASSESSMENT: 1. Chest pain with elevated troponin. 2. History of multivessel coronary artery disease. 3. Hypertension. 4. Hyperlipidemia. PLAN: It sounds like cardiac catheterization is planned. I have reviewed his orders. Nothing to add from Pulmonary standpoint. We will be happy to follow with you. Job ID: [id number]
[2018-11-20] MEDS: Mag-Al 1200 mg/1200 mg/30 ML UDCUP PO PRN (15:40)
[2018-11-20] MEDS ORDERED: Morphine 4 MG/ML VIAL ONE (17:04)
[2018-11-20] MEDS ORDERED: Morphine 2 MG/ML SYRINGE SLOW IVP PRN (17:18)
[2018-11-20] MEDS: Pantoprazole 40 MG VIAL IVP SCH (21:16)
[2018-11-20] MEDS: Metoprolol Tartrate 25 MG TAB PO SCH (21:16)
[2018-11-21] MEDS: Sodium Chloride 0.9% 1,000 ML IV SCH (04:37)
[2018-11-21 04:48] LABS: #Lymphocytes 1.6 thou/uL (1.20-3.40); #Monocytes 1.1 thou/uL (0.11-0.59); #Neutrophils 7.5 thou/uL (1.40-6.50); %Basophils 0.2 % (0.0-1.0); %Eosinophils 0.4 % (0.0-10.0); %Lymphocytes 15.6 % (21.0-51.0); %Monocytes 10.3 % (0.0-10.0); %Neutrophils 73.5 % (42.0-75.0); Mean Corpuscular HGB CONC 32.6 g/dL (32.0-36.0); Mean Corpuscular Hemoglobin 30.7 pg (27.0-31.0); Mean Corpuscular Volume 94.3 fL (78.0-98.0); Mean Platelet Volume 9.3 fL (7.4-10.4); Platelet Count 187 thou/uL (130-400); Red Blood Cell (RBC) Count 4.23 mill/uL (4.70-6.10); White Blood Cell (WBC) Count 10.2 thou/uL (4.8-10.8)
[2018-11-21 05:01] LABS: ALT (SGPT) 29 U/L (8-55); AST (SGOT) 127 U/L (5-34); Albumin 3.4 g/dL (3.4-4.8); Alkaline Phosphatase 49 U/L (40-150); Anion Gap 10 mmol/L (10-20); BUN (Urea Nitrogen) 9 mg/dL (8.4-25.7); Bilirubin, Total 0.6 mg/dL (0.2-1.2); Calc. Creatinine Clearance 112 mL/min (70-130); Calcium 8.7 mg/dL (7.8-10.44); Carbon Dioxide 26 mmol/L (23-31); Chloride 108 mmol/L (98-107); Estimated GFR-MDRD 88; Globulin 2.3 g/dL (2.4-3.5); Glucose 109 mg/dL (83-110); Potassium 4.4 mmol/L (3.5-5.1); Protein, Total 5.7 g/dL (5.8-8.1); Sodium 140 mmol/L (136-145)
--- NOTE | 2018-11-21 07:33 | PDOC.CTH ---
Cardiology Progress Note - Subjective Pt doing ok this am. No complaints. Attempts at decreasing nitro failed early this am. - Objective Vital Signs Temp Pulse Ox 11/21/18 07:13 94 L 11/21/18 04:00 98.2 F 11/20/18 20:00 98.1 F 98 Admit Weight 221 lb Weight 221 lb 9.033 oz 11/20/18 11/21/18 11/22/18 06:59 06:59 06:59 Intake Total 783 2499.4 Output Total 1350 3350 Balance -567 -850.6 - Physical Examination General/Neuro: alert & oriented x3, NAD Neck: carotid US brisk, no JVD present Lungs: unlabored respirations Heart: PMI normal, RRR Abdomen: NT/ND, soft Extremities: + femoral B - Labs Result Diagrams: 11/21/18 04:11 11/21/18 04:11 Troponin/CKMB CK-MB (CK-2) 258.8 ng/mL (0-6.6) H* 11/20/18 10:06 Troponin I 12.393 ng/mL (< 0.028) H* 11/20/18 10:06 - Assessment/Plan NQWMI CAD s/p CABG Revascularization to the SVG to the OMB was successful but sub optimal. Significnat thrombus present after PTCA and decided not to proceed with stent placemeent d/t risk of pro=pagating thrombus to the myocardium Check right groin US Stop aggrastat Cotninue ASA, plavix, BB and statin Wean off nitro slowly. add nitro patch
[2018-11-21] MEDS: Finasteride 5 MG TAB PO SCH (08:50)
[2018-11-21] MEDS: Clopidogrel Bisulfate 75 MG TAB PO SCH (08:50)
[2018-11-21] MEDS: Levothyroxine Sodium 125 MCG TAB PO SCH (08:50)
[2018-11-21] MEDS: Atorvastatin Calcium 40 MG TAB PO SCH (08:51)
[2018-11-21] MEDS: Metoprolol Tartrate 25 MG TAB PO SCH ×2 (08:51→21:18)
[2018-11-21] MEDS: Amlodipine 5 MG TAB PO SCH (08:52)
[2018-11-21] MEDS: Pantoprazole 40 MG VIAL IVP SCH ×2 (08:53→21:19)
--- NOTE | 2018-11-21 09:24 | PRG ---
DATE OF SERVICE: 11/21/2018 The patient is currently asleep. His nitroglycerin drip stopped this morning, and immediately began having chest pain again. According to Dr. Medrano's note, the patient had revascularization of the SVG to the OMB yesterday with PTCA, but because of thrombus risk, stent was not placed. OBJECTIVE: VITAL SIGNS: Temperature 98.0, pulse 78, blood pressure 94/59, and O2 saturation 94%. HEENT: Unremarkable. NECK: No visible JVD. LUNGS: Clear. CARDIAC: S1 and S2. Regular. ABDOMEN: Soft. LABORATORY DATA: White blood cell count 10, hematocrit 39.8, and platelet count 187. Sodium 140, potassium 4.4, chloride 108, CO2 of 26, BUN 9, creatinine 0.8, glucose 109. ASSESSMENT: 1. Non-Q-wave myocardial infarction. 2. Continued chest pain despite intervention. PLAN: Per Cardiology, the patient may require further invasive procedures. Prognosis is guarded. Job ID: [id number]
--- NOTE | 2018-11-21 11:23 | PDOC.PN ---
- Subjective Encounter Start Date: 11/21/18 Encounter Start Time: 09:15 this morning he had chest pain, he is still on NTG drip, no dyspnea - Objective Resuscitation Status - Order Detail: 11/19/18 20:09 Resuscitation Status Routine Resuscitation Status: FULL: Full Resuscitation MAR Reviewed: Yes Vital Signs & Weight: Vital Signs (12 hours) Temp Pulse Pulse BP BP Pulse Ox Pulse Ox 11/21/18 10:04 62 68 115/67 129/80 98 11/21/18 07:43 96 11/21/18 07:13 94 L 11/21/18 07:00 98.0 F 11/21/18 04:00 98.2 F Pulse Ox 11/21/18 10:04 96 11/21/18 07:43 11/21/18 07:13 11/21/18 07:00 11/21/18 04:00 Weight Admit Weight 221 lb Weight 221 lb 9.033 oz Most Recent Monitor Data Heart Rate from ECG 64 NIBP 115/67 NIBP BP-Mean 83 Respiration from ECG 16 SpO2 97 I&O: 11/20/18 11/21/18 11/22/18 06:59 06:59 06:59 Intake Total 783 2499.4 560 Output Total 1350 3350 900 Balance -567 -850.6 -340 Result Diagrams: 11/21/18 04:11 11/21/18 04:11 Additional Labs: Accuchecks 11/20/18 17:43 POC Glucose 87 EKG Reviewed by me: Yes (nsr) Phys Exam - Physical Examination Constitutional: NAD HEENT: moist MMs, sclera anicteric Neck: no JVD, supple Respiratory: no wheezing, no rales, no rhonchi Cardiovascular: RRR, no significant murmur, no rub Gastrointestinal: soft, non-tender, no distention, positive bowel sounds Musculoskeletal: no edema, pulses present Neurological: non-focal, normal sensation, moves all 4 limbs Lymphatic: no nodes Psychiatric: normal affect, A&O x 3 Skin: no rash, normal turgor Dx/Plan (1) NSTEMI (non-ST elevated myocardial infarction) Code(s): I21.4 - NON-ST ELEVATION (NSTEMI) MYOCARDIAL INFARCTION Status: Acute (2) CAD (coronary artery disease) Code(s): I25.10 - ATHSCL HEART DISEASE OF [place] CORONARY ARTERY W/O ANG PCTRS Status: Chronic (3) Dyslipidemia Code(s): E78.5 - HYPERLIPIDEMIA, UNSPECIFIED Status: Chronic (4) H/O: CVA (cerebrovascular accident) Code(s): Z86.73 - PRSNL HX OF TIA (TIA), AND CEREB INFRC W/O RESID DEFICITS Status: Chronic (5) Hypertension Code(s): I10 - ESSENTIAL (PRIMARY) HYPERTENSION Status: Chronic (6) Hypothyroidism Code(s): E03.9 - HYPOTHYROIDISM, UNSPECIFIED Status: Chronic (7) Obesity (BMI 30.0-34.9) Code(s): E66.9 - OBESITY, UNSPECIFIED Status: Chronic - Plan cont current plan of care * today will try to wean off NTG drip * currently on medical therapy for NSTEMI * as per cardiology US groin to rule out pseudoaneurysm * medication reviewed as below * symptomatic treatment. * possible to transfer to tele if NTG off and cardiology OK Review of Systems - Review of Systems ENT: negative: Ear Pain, Ear Discharge, Nose Pain, Nose Discharge, Nose Congestion, Mouth Pain, Mouth Swelling, Throat Pain, Throat Swelling, Other Respiratory: negative: Cough, Dry, Shortness of Breath, Hemoptysis, SOB with Excertion, Pleuritic Pain, Sputum, Wheezing Cardiovascular: negative: chest pain, palpitations, orthopnea, paroxysmal nocturnal dyspnea, edema, light headedness, other Gastrointestinal: negative: Nausea, Vomiting, Abdominal Pain, Diarrhea, Constipation, Melena, Hematochezia, Other Genitourinary: negative: Dysuria, Frequency, Incontinence, Hematuria, Retention , Other Musculoskeletal: negative: Neck Pain, Shoulder Pain, Arm Pain, Back Pain, Hand Pain, Leg Pain, Foot Pain, Other - Medications/Allergies Allergies/Adverse Reactions: Allergies Allergy/AdvReac Type Severity Reaction Status Date / Time iodine Allergy Verified 11/19/18 21:48 Medications: Current Medications Acetaminophen (Tylenol) 650 mg PO Q4H PRN PRN Reason: Headache/Fever/Mild Pain (1-3) Hydrocodone Bitart/Acetaminophen ([place] 5/325) 1 tab PO Q4H PRN PRN Reason: Moderate Pain (4-6) Al Hydroxide/Mg Hydroxide (Maalox) 30 ml PO Q4H PRN PRN Reason: Heartburn or Indigestion Last Admin: 06/10/19 15:40 Dose: 30 ml Amlodipine Besylate (Norvasc) 5 mg PO DAILY [facility] Last Admin: 11/21/18 08:52 Dose: 5 mg Artificial Tears (Tears Naturale) 2 drop EA EYE PRN PRN PRN Reason: Dry Eyes Atorvastatin Calcium (Lipitor) 40 mg PO DAILY [facility] Last Admin: 11/21/18 08:51 Dose: 40 mg Bisacodyl (Dulcolax) 10 mg PO DAILYPRN PRN PRN Reason: Constipation Calcium Carbonate (Tums) 500 mg PO PRN PRN PRN Reason: HEARTBURN/INDIGESTION Last Admin: 11/20/18 04:20 Dose: 500 mg Clopidogrel Bisulfate (Plavix) 75 mg PO DAILY [facility] Last Admin: 11/21/18 08:50 Dose: 75 mg Finasteride (Proscar) 5 mg PO DAILY [facility] Last Admin: 11/21/18 08:50 Dose: 5 mg Guaifenesin (Robitussin Sf) 200 mg PO Q4H PRN PRN Reason: Cough Hydralazine HCl (Apresoline) 10 mg SLOW IVP Q4H PRN PRN Reason: SBP > 180 and HR < 70 Nitroglycerin/Dextrose (Nitroglycerin 50 Mg/250 Ml Bot) 250 mls @ 0 mls/hr IVPB INF [facility]; Protocol Last Admin: 11/20/18 14:58 Dose: 250 mls Levothyroxine Sodium (Synthroid) 125 mcg PO DAILY [facility] Last Admin: 11/21/18 08:50 Dose: 125 mcg Loperamide HCl (Imodium) 2 mg PO PRN PRN PRN Reason: Diarrhea/Loose Stools Loratadine (Claritin) 10 mg PO DAILYPRN PRN PRN Reason: Sinus Symptoms Metoprolol Tartrate (Lopressor) 25 mg PO BID [facility] Last Admin: 11/21/18 08:51 Dose: 25 mg Morphine Sulfate (Morphine) 2 mg SLOW IVP Q4H PRN PRN Reason: BREAKTHRU PAIN Nitroglycerin (Nitrostat) 0.4 mg SL Q5MIN PRN PRN Reason: Chest Pain Nitroglycerin (Nitro-Dur 0.4mg/Hr Patch) 1 patch TD Q24HR [facility] Ondansetron HCl (Zofran Odt) 4 mg PO Q6H PRN PRN Reason: Nausea/Vomiting Ondansetron HCl (Zofran) 4 mg IVP Q6H PRN PRN Reason: Nausea/Vomiting Pantoprazole Sodium (Protonix) 40 mg IVP Q12HR [facility] Last Admin: 11/21/18 08:53 Dose: 40 mg Ranolazine (Ranexa) 500 mg PO BID [facility] Last Admin: 11/21/18 08:56 Dose: 500 mg Senna/Docusate Sodium (Senokot S) 2 tab PO BID PRN PRN Reason: Constipation Sodium Chloride ([place] Nasal [place] 0.65%) 0 ml EA NARE QIDPRN PRN PRN Reason: Nasal Congestion Sodium Chloride (Flush - Normal Saline) 10 ml IVF Q12HR [facility] Last Admin: 11/21/18 09:30 Dose: 10 ml Sodium Chloride (Flush - Normal Saline) 10 ml IVF PRN PRN PRN Reason: Saline Flush Throat Lozenges (Cepastat Lozenges) 1 nat PO Q2H PRN PRN Reason: Sore Throat Tramadol HCl (Ultram) 25 mg PO QIDPRN PRN PRN Reason: Pain Last Admin: 11/20/18 15:36 Dose: 25 mg Zolpidem Tartrate (Ambien) 5 mg PO HSPRN PRN PRN Reason: Insomnia
--- NOTE | 2018-11-21 11:47 | ULT ---
Duplex sonogram right groin HISTORY: Right groin pain. Recent catheterization. Possible pseudoaneurysm. FINDINGS: Good color and spectral Doppler flow within the right common femoral artery and vein. Superficial to the common femoral vessels, an oval somewhat irregular shaped complex fluid collection measures up to 4.8 cm length by 2.4 cm depth. No internal flow visible. IMPRESSION: Complex fluid collection superficial to the right common femoral vessels shows no interna l flow and likely represents a resolving hematoma. No evidence of persistent pseudoaneurysm.
[2018-11-21] MEDS: Nitroglycerin 0.4mg/Hour PATCH TD SCH (12:10)
[2018-11-21] MEDS: Mag-Al 1200 mg/1200 mg/30 ML UDCUP PO PRN (19:50)
[2018-11-22] MEDS: Clopidogrel Bisulfate 75 MG TAB PO SCH (08:07)
[2018-11-22] MEDS: Metoprolol Tartrate 25 MG TAB PO SCH ×2 (08:07→20:36)
[2018-11-22] MEDS: Levothyroxine Sodium 125 MCG TAB PO SCH (08:07)
[2018-11-22] MEDS: Amlodipine 5 MG TAB PO SCH (08:07)
[2018-11-22] MEDS: Atorvastatin Calcium 40 MG TAB PO SCH (08:07)
[2018-11-22] MEDS: Finasteride 5 MG TAB PO SCH (08:07)
[2018-11-22] MEDS: Pantoprazole 40 MG VIAL IVP SCH (08:07)
--- NOTE | 2018-11-22 09:40 | PRG ---
DATE OF SERVICE: 11/22/2018 SUBJECTIVE: The patient is doing well, having no chest pain, requiring no nitroglycerin drip. OBJECTIVE: VITAL SIGNS: Temperature 98.3, pulse 69, blood pressure 122/70, O2 saturation 97%. HEENT: Unremarkable. NECK: No adenopathy or JVD. CHEST: Clear. CARDIAC: S1, S2. Regular. ABDOMEN: Soft. EXTREMITIES: No edema. LABORATORY DATA: No labs were obtained today. ASSESSMENT: 1. Status post non-Q-wave myocardial infarction. 2. Resolved chest pain. PLAN: The patient will be transferred to telemetry. There are no further pulmonary issues, and we will sign off. Job ID: [id number]
[2018-11-22] MEDS: Nitroglycerin 0.4mg/Hour PATCH TD SCH (11:40)
--- NOTE | 2018-11-22 15:56 | PDOC.CTH ---
Cardiology Progress Note - Subjective Doing better today. Off iv nitro. On nitro patch. No compaints - Objective Vital Signs Temp Pulse Pulse Pulse Resp BP BP 11/22/18 14:24 98.3 F 71 14 11/22/18 12:00 98.2 F 11/22/18 09:17 77 68 145/80 H 11/22/18 08:07 70 122/70 11/22/18 08:00 98.3 F 11/22/18 07:34 11/22/18 04:00 98.8 F BP BP Pulse Ox Pulse Ox Pulse Ox 11/22/18 14:24 140/68 94 L 11/22/18 12:00 11/22/18 09:17 120/68 98 96 11/22/18 08:07 11/22/18 08:00 99 11/22/18 07:34 99 11/22/18 04:00 97 Admit Weight 221 lb Weight 3.499 oz 11/21/18 11/22/18 11/23/18 06:59 06:59 06:59 Intake Total 2499.4 1205 700 Output Total 3350 3850 770 Balance -850.6 -2645 -70 - Physical Examination General/Neuro: alert & oriented x3, NAD Neck: no JVD present Lungs: CTA, unlabored respirations Heart: PMI normal, RRR Abdomen: NT/ND, soft Extremities: + edema B - Telemetry Telemetry Rhythm: sr - Labs Result Diagrams: 11/21/18 04:11 11/21/18 04:11 Troponin/CKMB CK-MB (CK-2) 258.8 ng/mL (0-6.6) H* 11/20/18 10:06 Troponin I 12.393 ng/mL (< 0.028) H* 11/20/18 10:06 - Assessment/Plan NQWMI CAD s/p CABG Improving Occluded SVG to OMB (could not revascularize completely) Treat medically BB, ranexa and nitro patch Home tomorrow if not other changes.
[2018-11-22] MEDS ORDERED: Bisacodyl 10 MG SUPP PR PRN (20:02)
--- NOTE | 2018-11-22 20:02 | PDOC.PN ---
- Subjective Encounter Start Date: 11/22/18 Encounter Start Time: 20:02 Patient seen and examined for NSTEMI. No CP/SOB or palpitations. No new complaints. No overnight events - Objective Resuscitation Status - Order Detail: 11/19/18 20:09 Resuscitation Status Routine Resuscitation Status: FULL: Full Resuscitation MAR Reviewed: Yes Vital Signs & Weight: Vital Signs (12 hours) Temp Pulse Pulse Pulse Resp BP BP 11/22/18 19:53 98.9 F 74 18 11/22/18 16:18 98.5 F 64 14 11/22/18 14:24 98.3 F 71 14 11/22/18 12:00 98.2 F 11/22/18 09:17 77 68 145/80 H 11/22/18 08:07 70 122/70 BP BP Pulse Ox Pulse Ox Pulse Ox 11/22/18 19:53 116/57 L 94 L 11/22/18 16:18 126/64 96 11/22/18 14:24 140/68 94 L 11/22/18 12:00 11/22/18 09:17 120/68 98 96 11/22/18 08:07 Weight Admit Weight 221 lb Weight 3.499 oz Most Recent Monitor Data Heart Rate from ECG 65 NIBP 105/70 NIBP BP-Mean 81 Respiration from ECG 10 SpO2 96 I&O: 11/21/18 11/22/18 11/23/18 06:59 06:59 06:59 Intake Total 2499.4 1205 1180 Output Total 3350 3850 1520 Balance -850.6 -2645 -340 Result Diagrams: 11/23/18 04:56 11/23/18 04:56 EKG Reviewed by me: Yes (Tele SR) Phys Exam - Physical Examination Constitutional: NAD Respiratory: no wheezing, no rhonchi Cardiovascular: RRR, no rub Gastrointestinal: soft, non-tender, positive bowel sounds Musculoskeletal: no edema Neurological: moves all 4 limbs Psychiatric: A&O x 3 Dx/Plan - Plan DVT proph w/SCDs IMPRESSION: NSTEMI CAD HLD Hypertension Hypothyroidism H/O: CVA (cerebrovascular accident) Other issues per previous notes PLAN: Cont antiplatelets/Statins/Metoprolol/NTG patch Off Nitro drip Cont PPI AM labs Review of Systems - Review of Systems Cardiovascular: negative: chest pain, palpitations, orthopnea, paroxysmal nocturnal dyspnea, edema, light headedness, other Gastrointestinal: negative: Nausea, Vomiting, Abdominal Pain, Diarrhea, Constipation, Melena, Hematochezia, Other - Medications/Allergies Allergies/Adverse Reactions: Allergies Allergy/AdvReac Type Severity Reaction Status Date / Time iodine Allergy Verified 11/19/18 21:48 Medications: Current Medications Acetaminophen (Tylenol) 650 mg PO Q4H PRN PRN Reason: Headache/Fever/Mild Pain (1-3) Hydrocodone Bitart/Acetaminophen ([place] 5/325) 1 tab PO Q4H PRN PRN Reason: Moderate Pain (4-6) Al Hydroxide/Mg Hydroxide (Maalox) 30 ml PO Q4H PRN PRN Reason: Heartburn or Indigestion Last Admin: 11/21/18 19:50 Dose: 30 ml Amlodipine Besylate (Norvasc) 5 mg PO DAILY [facility] Last Admin: 11/22/18 08:07 Dose: 5 mg Artificial Tears (Tears Naturale) 2 drop EA EYE PRN PRN PRN Reason: Dry Eyes Atorvastatin Calcium (Lipitor) 40 mg PO DAILY [facility] Last Admin: 11/22/18 08:07 Dose: 40 mg Bisacodyl (Dulcolax) 10 mg PO DAILYPRN PRN PRN Reason: Constipation Calcium Carbonate (Tums) 500 mg PO PRN PRN PRN Reason: HEARTBURN/INDIGESTION Last Admin: 11/20/18 04:20 Dose: 500 mg Clopidogrel Bisulfate (Plavix) 75 mg PO DAILY [facility] Last Admin: 11/22/18 08:07 Dose: 75 mg Finasteride (Proscar) 5 mg PO DAILY [facility] Last Admin: 11/22/18 08:07 Dose: 5 mg Guaifenesin (Robitussin Sf) 200 mg PO Q4H PRN PRN Reason: Cough Hydralazine HCl (Apresoline) 10 mg SLOW IVP Q4H PRN PRN Reason: SBP > 180 and HR < 70 Levothyroxine Sodium (Synthroid) 125 mcg PO DAILY [facility] Last Admin: 11/22/18 08:07 Dose: 125 mcg Loperamide HCl (Imodium) 2 mg PO PRN PRN PRN Reason: Diarrhea/Loose Stools Loratadine (Claritin) 10 mg PO DAILYPRN PRN PRN Reason: Sinus Symptoms Metoprolol Tartrate (Lopressor) 25 mg PO BID [facility] Last Admin: 11/22/18 08:07 Dose: 25 mg Morphine Sulfate (Morphine) 2 mg SLOW IVP Q4H PRN PRN Reason: BREAKTHRU PAIN Nitroglycerin (Nitrostat) 0.4 mg SL Q5MIN PRN PRN Reason: Chest Pain Nitroglycerin (Nitro-Dur 0.4mg/Hr Patch) 1 patch TD Q24HR [facility] Last Admin: 11/22/18 11:40 Dose: 1 patch Ondansetron HCl (Zofran Odt) 4 mg PO Q6H PRN PRN Reason: Nausea/Vomiting Ondansetron HCl (Zofran) 4 mg IVP Q6H PRN PRN Reason: Nausea/Vomiting Pantoprazole Sodium (Protonix) 40 mg PO BID [facility] Ranolazine (Ranexa) 500 mg PO BID [facility] Last Admin: 11/22/18 08:06 Dose: 500 mg Senna/Docusate Sodium (Senokot S) 2 tab PO BID PRN PRN Reason: Constipation Sodium Chloride ([place] Nasal [place] 0.65%) 0 ml EA NARE QIDPRN PRN PRN Reason: Nasal Congestion Sodium Chloride (Flush - Normal Saline) 10 ml IVF Q12HR [facility] Last Admin: 11/22/18 08:08 Dose: 10 ml Sodium Chloride (Flush - Normal Saline) 10 ml IVF PRN PRN PRN Reason: Saline Flush Throat Lozenges (Cepastat Lozenges) 1 nat PO Q2H PRN PRN Reason: Sore Throat Tramadol HCl (Ultram) 25 mg PO QIDPRN PRN PRN Reason: Pain Last Admin: 11/20/18 15:36 Dose: 25 mg Zolpidem Tartrate (Ambien) 5 mg PO HSPRN PRN PRN Reason: Insomnia
[2018-11-22] MEDS: Senokot S 8.6-50 MG TAB PO SCH (20:36)
[2018-11-22] MEDS ORDERED: Polyethylene Glycol 3350 17 GM Packet PO SCH (21:00)
[2018-11-23 05:38] LABS: Hemoglobin 12.7 g/dL (14.0-18.0); Platelet Count 169 thou/uL (130-400)
[2018-11-23 05:48] LABS: Anion Gap 12 mmol/L (10-20); BUN (Urea Nitrogen) 17 mg/dL (8.4-25.7); Calc. Creatinine Clearance 0 mL/min (70-130); Carbon Dioxide 26 mmol/L (23-31); Chloride 105 mmol/L (98-107); Estimated GFR-MDRD 79; Glucose 111 mg/dL (83-110); Magnesium 2.3 mg/dL (1.6-2.6); Potassium 4.7 mmol/L (3.5-5.1); Sodium 138 mmol/L (136-145)
[2018-11-23] MEDS ORDERED: Aspirin 325 mg Enteric Coated Tablet PO SCH (09:00)
[2018-11-23] MEDS: Finasteride 5 MG TAB PO SCH (09:11)
[2018-11-23] MEDS: Clopidogrel Bisulfate 75 MG TAB PO SCH (09:11)
[2018-11-23] MEDS: Metoprolol Tartrate 25 MG TAB PO SCH (09:12)
[2018-11-23] MEDS: Levothyroxine Sodium 125 MCG TAB PO SCH (09:12)
[2018-11-23] MEDS: Amlodipine 5 MG TAB PO SCH (09:12)
[2018-11-23] MEDS: Atorvastatin Calcium 40 MG TAB PO SCH (09:12)
[2018-11-23] MEDS: Senokot S 8.6-50 MG TAB PO SCH (09:13)
[2018-11-23] MEDS: Nitroglycerin 0.4mg/Hour PATCH TD SCH (11:33)
[2018-11-23 15:50] VITALS: BP 134/69; TEMP 97.5
--- NOTE | 2018-11-23 17:52 | PRG ---
DATE OF SERVICE: SUBJECTIVE: Mr. Damian is doing well. No recurrent episodes of chest pain or pressure noted. OBJECTIVE: VITAL SIGNS: Blood pressure 135/69, pulse 66, and temperature 97.5. GENERAL: Patient is a pleasant male who is in no acute distress. The patient appears their stated age. NEUROLOGIC: The patient is alert and oriented x3 with no focal neurologic deficits. HEENT: Sclerae without icterus. Mouth has moist mucous membranes with normal pallor. NECK: No JVD. Carotid upstroke brisk. No bruits bilaterally. LUNGS: Clear to auscultation with unlabored respirations. BACK: No scoliosis or kyphosis. CARDIAC: Regular rate and rhythm with normal S1 and S2. No S3 or S4 noted. No significant rubs, murmurs, thrills, or gallops noted throughout the precordium. PMI is not displaced. There is no parasternal heave. ABDOMEN: Soft, nontender, nondistended. No peritoneal signs present. No hepatosplenomegaly. No abnormal striae. EXTREMITIES: 2+ femoral and 2+ dorsalis pedis pulses. No cyanosis, clubbing, or edema. SKIN: No gross abnormalities. PERTINENT LABORATORY DATA: Hemoglobin 12.7. IMPRESSION: 1. Non-Q-wave myocardial infarction. 2. Severe coronary artery disease. 3. Status post bypass surgery. RECOMMENDATIONS: Mr. Damian did undergo partial revascularization. His graft to the OM branch was completely occluded. He underwent PTCA only with no stent placement due to significant thrombus. He is currently pain free. At this point, continue current medical therapy. We will change his Imdur to nitroglycerin patch. Continue OZ inhibitor therapy, beta otf therapy, statin, Ranexa, and aspirin. Plan to follow up Mr. Damian in 2 to 3 weeks. Job ID: [id number]
--- NOTE | 2018-11-24 01:35 | DIS ---
DATE OF ADMISSION: 11/19/2018 DATE OF DISCHARGE: 11/23/2018 DISCHARGE DISPOSITION: Home. FOLLOWUP: 1. Follow up with primary care physician, Dr. Huerta in 1 week. 2. Follow up with Dr. Medrano on 11 December as scheduled. 3. Outpatient cardiac rehab. 4. [facility] consultant cardiology, Dr. Medrano. ALLERGIES: THE PATIENT IS ALLERGIC TO IODINE. DISCHARGE MEDICATIONS: Isosorbide mononitrate was changed to nitroglycerin patch. Otherwise, all other home medications including aspirin, Plavix, Ranexa were left unchanged. The patient was seen on the day of discharge. Denies any new complaints. No chest pain, shortness of breath, or palpitations reported. The patient is ambulating in the hallway. BRIEF HOSPITAL COURSE: The patient is a 73-year-old male with coronary artery disease, status post CABG; hypertension; hyperlipidemia; and CVA in the past, presented to the hospital with chest discomfort on November 19, 2018. Please refer to the history and physical for further details. The patient was admitted to the hospital with a diagnosis of [id number] PA. He was monitored in the intensive care unit setting. He was started on nitroglycerin drip. Aspirin and Plavix were continued. He was seen by Cardiology, Dr. Medrano, as well as jigsawyer, Dr. Gibbs. Cardiac catheterization was performed; however, no interventions could be done. Isosorbide mononitrate has been changed to nitroglycerin patch per Cardiology recommendation. He also had some swelling in the groin. However, ultrasound was negative for pseudoaneurysm. He is chest pain free and has been ambulating in the hallway. He has been cleared by Cardiology for discharge. SIGNIFICANT LABORATORY DATA: Maximum troponin 12.3 with CK-MB of 258. Creatinine 0.9. FINAL DIAGNOSES: 1. [id number] myocardial infarction. 2. Coronary artery disease, status post CABG in the past. 3. Hyperlipidemia. 4. Hypertension. 5. Hypothyroidism. 6. History of cerebrovascular accident. 7. Chronic kidney disease, stage 2. 8. Anxiety. PLAN: Plan of care was discussed with the patient in detail. He stated understanding. Job ID: [id number]
--- NOTE | 2018-11-24 21:05 | EKG ---
Test Reason : Blood Pressure : / mmHG Vent. Rate : 076 BPM Atrial Rate : 076 BPM P-R Int : 152 ms QRS Dur : 082 ms QT Int : 378 ms P-R-T Axes : 029 -60 045 degrees QTc Int : 425 ms Normal sinus rhythm Left anterior fascicular block Inferior-posterior infarct , age undetermined Abnormal ECG When compared with ECG of 19-NOV-2018 19:56, (Unconfirmed) Inferior-posterior infarct is now Present T wave inversion no longer evident in Anterior leads Confirmed by Eden RAMSAY ([id number]) on 11/24/2018 9:05:25 PM Referred By: ABHINAV Confirmed By:Eden RAMSAY
--- NOTE | 2018-11-24 21:08 | EKG ---
Test Reason : S/P CATH Blood Pressure : / mmHG Vent. Rate : 075 BPM Atrial Rate : 075 BPM P-R Int : 156 ms QRS Dur : 082 ms QT Int : 382 ms P-R-T Axes : 045 -65 065 degrees QTc Int : 426 ms Normal sinus rhythm Left anterior fascicular block Cannot rule out Inferior infarct (cited on or before 20-NOV-2018) Abnormal ECG When compared with ECG of 20-NOV-2018 09:41, (Unconfirmed) No significant change was found Confirmed by Eden RAMSAY ([id number]) on 11/24/2018 9:08:10 PM Referred By: MARIAH Confirmed By:Eden RAMSAY
--- NOTE | 2018-11-24 21:10 | EKG ---
Test Reason : Blood Pressure : / mmHG Vent. Rate : 069 BPM Atrial Rate : 069 BPM P-R Int : 152 ms QRS Dur : 080 ms QT Int : 390 ms P-R-T Axes : 036 -64 073 degrees QTc Int : 417 ms Normal sinus rhythm Left anterior fascicular block Cannot rule out Inferior infarct (cited on or before 20-NOV-2018) Abnormal ECG When compared with ECG of 20-NOV-2018 14:36, (Unconfirmed) Nonspecific T wave abnormality now evident in Lateral leads Confirmed by Eden RAMSAY ([id number]) on 11/24/2018 9:09:57 PM Referred By: MARIAH Confirmed By:Eden RAMSAY
== END 2018-11-23 18:00 | disposition home or self-care (01) | DRG 251 ==
LOC: ERS 18:51 → CCU 20:09 → 2NO 11-22 14:11
PROVIDERS: ADMIT Hospitalist; ATTEND Hospitalist
PROC: 02703ZZ Dilation of Coronary Artery, One Artery, Percutaneous Approach (ICD-10-PCS; principal; 2018-11-19)
PROC: 4A023N7 Measurement of Cardiac Sampling and Pressure, Left Heart, Percutaneous Approach (ICD-10-PCS; 2018-11-19)
PROC: B2151ZZ Fluoroscopy of Left Heart using Low Osmolar Contrast (ICD-10-PCS; 2018-11-19)
PROC: B2111ZZ Fluoroscopy of Multiple Coronary Arteries using Low Osmolar Contrast (ICD-10-PCS; 2018-11-19)
DX: I21.4 Non-ST elevation (NSTEMI) myocardial infarction (principal); E87.1 Hypo-osmolality and hyponatremia; I25.10 Atherosclerotic heart disease of native coronary artery without angina pectoris; E78.5 Hyperlipidemia, unspecified; N18.2 Chronic kidney disease, stage 2 (mild); F41.9 Anxiety disorder, unspecified; I12.9 Hypertensive chronic kidney disease with stage 1 through stage 4 chronic kidney disease, or unspecified chronic kidney disease; R73.9 Hyperglycemia, unspecified; E03.9 Hypothyroidism, unspecified; Z86.73 Personal history of transient ischemic attack (TIA), and cerebral infarction without residual deficits; Z95.1 Presence of aortocoronary bypass graft; Z79.899 Other long term (current) drug therapy; Z87.891 Personal history of nicotine dependence; Z91.041 Radiographic dye allergy status; Z91.013 Allergy to seafood; Z79.82 Long term (current) use of aspirin; Z79.02 Long term (current) use of antithrombotics/antiplatelets
CPT/HCPCS: 36415; 36416; 71045; 76936; 76942; 80048; 80053; 82550; 82553; 83735; 84484; 85014; 85018; 85025; 85049; 85347; 85610; 85730; 92924; 92977; 93005; 93010; 93455; 93567; 93798; 96365; 96366; 96375; 99152; 99153; C1725; C1757; C1769; C1887; C9113; J0153; J0171; J0360; J1200; J1644; J1720; J2001; J2250; J2270; J2405; J3010; J3246; Q9967

== ENCOUNTER 2019-03-20 09:29 | Inpatient (IN) | payer MEDICARE ==
[2019-03-20] MEDS ORDERED: Iopamidol 370 76% 100 ML VIAL ONE (10:04)
[2019-03-20] MEDS ORDERED: Ondansetron PF 4 MG/2 ML Vial ONE (10:08)
[2019-03-20] MEDS ORDERED: Morphine 4 MG/ML VIAL ONE (10:08)
[2019-03-20 10:09] LABS: ALT (SGPT) 13 U/L (8-55); AST (SGOT) 13 U/L (5-34); Alkaline Phosphatase 59 U/L (40-110); Anion Gap 17 mmol/L (10-20); BUN (Urea Nitrogen) 9 mg/dL (8.4-25.7); Bilirubin, Total 0.4 mg/dL (0.2-1.2); Calc. Creatinine Clearance 0 mL/min (70-130); Calcium 9.2 mg/dL (7.8-10.44); Carbon Dioxide 24 mmol/L (23-31); Chloride 106 mmol/L (98-107); Estimated GFR-MDRD 77; Globulin 3.1 g/dL (2.4-3.5); Glucose 168 mg/dL (83-110); Potassium 3.8 mmol/L (3.5-5.1); Protein, Total 7.1 g/dL (5.8-8.1); Sodium 143 mmol/L (136-145)
[2019-03-20 10:11] LABS: #Basophils 0.1 thou/uL (0.0-0.2); #Eosinphils 0.2 thou/uL (0.0-0.7); #Lymphocytes 1.3 thou/uL (1.20-3.40); #Monocytes 0.5 thou/uL (0.11-0.59); %Basophils 0.8 % (0.0-1.0); %Eosinophils 2.5 % (0.0-10.0); %Neutrophils 74.7 % (42.0-75.0); Hemoglobin 15.8 g/dL (14.0-18.0); Mean Corpuscular HGB CONC 32.7 g/dL (32.0-36.0); Mean Corpuscular Hemoglobin 29.4 pg (27.0-31.0); Mean Corpuscular Volume 89.9 fL (78.0-98.0); Mean Platelet Volume 9.6 fL (7.4-10.4); Platelet Count 172 thou/uL (130-400); RBC Distribution Width 13.6 % (11.5-14.5); Red Blood Cell (RBC) Count 5.37 mill/uL (4.70-6.10)
[2019-03-20] MEDS ORDERED: Nitroglycerin 2% Ointment 1 INCH/1 GM Packet ONE (10:14)
[2019-03-20 10:28] LABS: CKMB 3.9 ng/mL (0-6.6)
[2019-03-20] MEDS ORDERED: Fentanyl 100 MCG/2 ML VIAL ONE (10:41)
[2019-03-20] MEDS ORDERED: Nitroglycerin 50 MG/250 ML BOT 250 ML ONE (11:33)
[2019-03-20] MEDS ORDERED: Aspirin Chewable 81 MG TAB ONE (11:34)
--- NOTE | 2019-03-20 11:43 | RAD ---
PORTABLE CHEST ONE VIEW: 03/20/2019 10:24 a.m. HISTORY: Chest pain. FINDINGS: There are changes of median sternotomy. The heart size is normal. The aorta is tortuous. No focal are as of consolidation, pneumothoraces or pleural effusions are seen. No significant interval change is seen since the exam of 11/19/2018. IMPRESSION: No acute process. POS: OFF
[2019-03-20] MEDS ORDERED: Metoprolol Tartrate 5 MG/5 ML VIAL ONE (13:10)
[2019-03-20] MEDS ORDERED: Enoxaparin Sodium 100 MG/ML SYRINGE ONE (13:13)
--- NOTE | 2019-03-20 13:32 | CT ---
CT ANGIOGRAM THORAX WITH IV CONTRAST AND 3-D RECONSTRUCTIONS CLINICAL INDICATION: Chest pain COMPARISON: CTA chest on 02/27/2018 FINDINGS: Pulmonary arteries: No filling defects are seen in the pulmonary arteries to suggest a pulmonary embo grayson. Aorta/mediastinum: There is ectasia of the ascending thoracic aorta which measures 4.1 cm in greatest AP dimension. There is no evidence of an aortic dissection. 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 Vascular calcifications are seen in the aortic arch and to a lesser extent involving the ascending thoracic aorta. Prominent vascular calcifications are seen in the coronary arteries. Postsurgical changes related to CABG are again seen. There are bypass grafts present extending from t he anterior aspect of the ascending thoracic aorta one of which extends to the LAD, and there appears to be mild to moderate stenosis in the proximal portion of the graft. There is also a second graft which was also noted on the prior exam also originating from the anterior aspect of the thoracic aorta, and this graft supplied the circumflex artery on the prior exam. This graft is now oc cluded. There is no evidence of lymphadenopathy. Lungs: Bibasilar atelectasis is present. No discrete pulmonary nodule, mass, or pleural effusion is s een. Thyroid gland: Not visualized. Osseous structures: Degenerative changes are seen in the spine. Chest wall: No abnormality visualized. Upper abdomen: Small focal subcentimeter fat density is seen within the duodenum which was also prese nt in a similar location the prior study may represent a small duodenal lipoma. The upper abdomen demonstrates a normal CT appearance for phase of imaging. IMPRESSION: 1. Evidence of CABG. However, there has been interval development of occlusion of a coronary artery b ypass graft extending to the circumflex artery. The coronary artery bypass graft extending to the LAD demonstrates what appears to be mild to moderate narrowing proximally, but this is overall simila r to prior study. 2. Ectasia of the ascending thoracic aorta without evidence of an aortic dissection. Incidental note is made of an aberrant right subclavian artery. 3. No CT evidence of a pulmonary embolus.
[2019-03-20 13:37] LABS: Troponin I 0.077 ng/mL (< 0.028)
[2019-03-20 16:35] LABS: Troponin I 0.607 ng/mL (< 0.028)
[2019-03-20 16:56] VITALS: BMI 32.4
[2019-03-20] MEDS ORDERED: Acetaminophen 325 MG TAB PO PRN (18:05)
[2019-03-20] MEDS ORDERED: Nitroglycerin 50 MG/250 ML BOT 250 ML IVPB SCH (18:15)
[2019-03-20] MEDS ORDERED: traMADol HCl 50 MG TAB PO PRN (18:15)
[2019-03-20 19:12] LABS: Hemoglobin 15.8 g/dL (14.0-18.0); Platelet Count 171 thou/uL (130-400)
[2019-03-20 19:44] LABS: Troponin I 2.219 ng/mL (< 0.028)
[2019-03-20] MEDS: Heparin 10,000 UNITS/ 10 ML VIAL SLOW IVP SCH (20:22)
[2019-03-20] MEDS: Heparin 25,000 units/D5W 500 ML IVPB SCH (20:24)
[2019-03-20] MEDS: Famotidine 20 MG TAB PO SCH (20:39)
[2019-03-20] MEDS ORDERED: Metoprolol Tartrate 25 MG TAB PO SCH (21:00)
--- NOTE | 2019-03-20 23:04 | CON ---
DATE OF CONSULTATION: 03/20/2019 INDICATION FOR CONSULTATION: A 73-year-old gentleman with end-stage coronary artery disease, who has been felt to be inoperable, who presented again with chest discomfort. He has been taking care of his at home, he overdid yesterday cleaning the house and then presented today with some chest discomfort. He took some nitroglycerin, but did not improve his symptoms, so he presented to the emergency room and then was brought here for further evaluation and treatment. His cardiac enzymes were indeterminate, but slightly on the high side and become somewhat positive now. His troponin I was 0.037 increased up to 0.07 and is now at 4 o'clock this afternoon 0.607. His BNP is 68 and MBs are 3.9. Please review my last notes when I saw this patient also when he was here back in November 19, 2018, and if you review my notes, we will see that he has diffuse three vessel coronary artery disease, which has been essentially inoperable. He has had a cardiac catheterization, which showed the left anterior descending artery to be heavy calcified with 90% stenosis. The mid left anterior descending was 100% occluded. The diagonal branch had 70% to 80% stenosis. The left circumflex was 100% occluded in small vessels. Left ventricular ejection fraction of 50% to 55%. He has suffered an inferior myocardial infarction in the past. He has undergone bypass surgery and I believe the saphenous vein graft to the obtuse marginal branch was still patent, however, the diagonal graft vein was occluded as well as to the 1st diagonal branch and also to the second diagonal branch and he had an occluded URSULA to the right coronary artery. I believe he still has a RANDOLPH which is patent to the LAD, but there is diffuse disease noted in the vessel. PAST MEDICAL HISTORY: Significant for the coronary artery disease as noted above. He has had myocardial infarctions in the past. He has had bypass surgery. He has CVA in 2000 and 2003. He has hypertension, dyslipidemia, hypothyroidism, history of anxiety. He thinks he may have panic attacks. MEDICATIONS: He is taking; 1. Aspirin. 2. Sublingual nitroglycerin. 3. Ranexa. 4. Levothyroxine. 5. Metoprolol. 6. Atorvastatin. 7. Amlodipine. 8. Isosorbide mononitrate. 9. Tramadol. 10. Protonix. 11. Plavix. 12. Finasteride. In the emergency room, he was given; 1. Lovenox. 2. Lopressor. 3. Nitroglycerin. 4. Fentanyl. 5. Zofran. ALLERGIES: HE IS ALLERGIC TO IODINE, BUT HAS HAD CT SCANS PREVIOUSLY WITHOUT ANY PROBLEMS. SOCIAL HISTORY: He is , takes care of his who is disabled. He has smoked in the past, but stopped 10 or 15 years ago. He has no cigarette or alcohol use. FAMILY HISTORY: Noncontributory. REVIEW OF SYSTEMS: He mainly complains of chest discomfort and also has some dyspnea. Otherwise, he denied any new HEENT complaints. No pulmonary complaints. No GI or complaints. No musculoskeletal complaints. He did have some mild lower extremity edema especially involving the right foot and right ankle, but this is not significant today. Neurologically, he had no complaints of seizures or syncope. LABORATORY DATA: Noted above for the troponin I and his blood sugar is 168, potassium is 3.8, creatinine is 0.96. Hemoglobin is 15.8 with a WBC of 8.0. His EKG shows a normal sinus rhythm with nonspecific T-wave changes and then incomplete right bundle-branch block, but T-wave inversions in V1 and V2. At this time, he is now pain-free in the intensive care unit. IMPRESSION: 1. Severe end-stage coronary artery disease. We will continue medical management. He has been placed on heparin and on a nitroglycerin drip and he is pain free at this time. We will trend his cardiac enzymes, but it appears he will be on medical treatment only. 2. Hypertension. He is under good control at this time. We will continue his medication. 3. Hyperlipidemia. We will continue his statin medications as long as he is able to tolerate them. Further care of the patient will be by Dr. Medrano when he visits with the patient tomorrow. Job ID: [id number]
--- NOTE | 2019-03-20 23:05 | HP ---
CHIEF COMPLAINT: Chest pain. HISTORY OF PRESENT ILLNESS: This patient is a 73-year-old male with a history of severe coronary artery disease that is unfortunately beyond any interventional means. He was here in November, at which time, he had a heart attack and had a myocardial infarction and had a catheterization revealing occlusive disease of several of his bypassed vessels without the ability to significantly intervene. The patient has been placed on medical management including Ranexa. He reports that yesterday he was moving his bedroom furniture around trying to clean under it, so it took him most of the day. This morning, he woke up at about 5 o'clock in the morning with pain in his neck and jaw area with some slight radiation down to the right chest area. He reports the pain was a peak of 8/10. He ultimately decided to get himself cleaned up, get dressed and went to the [facility] Emergency Department. There, the patient reported it was still 8/10 pain at that time, he took nitroglycerin, did not get help. Had a nitroglycerin patch with no help. Ultimately, received some opioids including fentanyl and that did help. The patient also reports that he had tried some Maalox at home that morning. He had similar pain in the past and Maalox had typically helped. He reports this pain is not similar to the pain that he had in November when he had the DC as that was more directly related to the chest. Denies associated fevers, chills, nausea, vomiting, shortness of breath, or lightheadedness. REVIEW OF SYSTEMS: The patient reports some urinary hesitancy and difficulty, occasional edema in his legs, has some tingling in his extremities at times as a result of chronic neuropathy. All other systems were reviewed. All pertinent positives and negatives noted in the history of present illness. PAST MEDICAL HISTORY: Notable for the above-mentioned coronary artery disease. His cath report from November notable for severe multi-vessel disease. There was PTCA to the SVG to the OM1, which was unsuccessful secondary to severe marked thrombosis, was a failed attempt at thrombectomy x2, had occluded graft to the first diagonal branch, which was old and an acute occlusion of the graft to the obtuse marginal branch. He had also occluded disease of the URSULA to the RCA, which was also old and had a patent RANDOLPH to the LAD. He also has a history of hypothyroidism, diabetes mellitus, hypertension, and a history of right carotid stenosis and apparently prior stroke. PAST SURGICAL HISTORY: Five-vessel coronary artery bypass graft. FAMILY HISTORY: Father had coronary disease, at 88 years old. Mother had rheumatic fever and at 95. Brother had acute DC at 49. Another brother with COPD and one with cancer. SOCIAL HISTORY: Nonsmoker, nondrinker, nondrug user. He is . He is full code and his surrogate decision maker would be his , Lorna Damian at [phone]. ALLERGIES: IODINE AND CRAB. CURRENT MEDICATIONS: 1. Levothyroxine 125 mg one p.o. daily. 2. Metoprolol tartrate 25 mg one p.o. b.i.d. 3. Tramadol 50 mg one p.o. q.i.d. p.r.n. 4. Aspirin 81 mg daily. 5. Atorvastatin 40 mg daily. 6. Amlodipine 5 mg daily. 7. Isosorbide mononitrate extended release 60 mg p.o. daily. 8. Pantoprazole 40 mg p.o. daily. 9. Ranexa 500 mg b.i.d. 10. Plavix 75 mg one p.o. daily. 11. Nitroglycerin p.r.n. 12. Finasteride 5 mg one p.o. daily. PHYSICAL EXAMINATION: VITAL SIGNS: Temperature 97.6, pulse 65, BP was initially 183/75, most recent 145/76, respirations are 11, O2 saturations 95% on room air. GENERAL APPEARANCE: Age-appropriate male, in no distress. Awake, alert, oriented, pleasant, cooperative. HEENT: PERRL. No OP lesions. NECK: Supple and symmetric without lymphadenopathy, JVD, or bruits noted. HEART: Regular rate and rhythm. Faint. No murmurs, gallops, or rubs. LUNGS: Clear to auscultation bilaterally with good chest wall expansion and air exchange. ABDOMEN: Soft, nontender, and nondistended. Positive bowel sounds. No masses. No organomegaly. EXTREMITIES: No cyanosis, clubbing, or edema. LABORATORY DATA: White count 8.0, hemoglobin 15.8, platelets 172, D-dimer 0.69. Sodium 143, potassium 3.8, chloride 106, CO2 is 24, BUN 9, creatinine 0.96, GFR 77, glucose 168, calcium 9.2, total bilirubin 0.4, AST 13, ALT 13, troponin was 0.037, subsequent 0.077, and subsequent 0.607. BNP 68.9. Chest x-ray shows no acute process. CTA of the chest shows no evidence of a pulmonary embolus. There is evidence of CABG; however, there has been interval development of occlusion of coronary artery bypass graft extending to the circumflex. The coronary artery bypass graft extending to the LAD demonstrates what appears to be a mild to moderate narrowing proximally, but this is overall similar to the prior study. 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 EKG shows some evidence of left atrial enlargement, some nonspecific ST and T-wave changes. IMPRESSION AND PLAN: 1. ST-elevation myocardial infarction. The patient has a history of severe inoperable coronary disease, status post a prior bypass with previous attempts at intervention being essentially unsuccessful and the patient is now on medical management, presents today with pain in the jaw radiating to the chest with elevating troponins consistent with [id number] elevation myocardial infarction. This case was discussed with Cardiology while he was still in the emergency department. He started on a nitroglycerin drip. I did discuss the case with Dr. Arreola. We will go ahead and add the heparin drip at this time. We will continue with his beta otf, aspirin, and Ranexa. Unfortunately, there is again likely to be little done. It is aggressive to intervene for him other than the medical management. We will continue to monitor his troponins as well. 2. Hypertension. Continue with metoprolol, amlodipine, and isosorbide. 3. Hyperlipidemia. Continue with statin. 4. Hypothyroidism. Continue with his levothyroxine. 5. Diabetes mellitus. The patient reports that he is not currently on any medications, that he manages it with diet alone, and has been monitoring his hemoglobin A1cs routinely and has had good control of his blood sugars. The last hemoglobin A1c we have recorded is from September and it was 5.9, but he has been 6.2 or lower going back to 2012. We will order some Accu-Cheks and low-dose sliding scale. Job ID: [id number]
[2019-03-20 23:16] LABS: Troponin I 5.218 ng/mL (< 0.028)
[2019-03-21] MEDS: Morphine 2 MG/ML SYRINGE SLOW IVP PRN ×2 (00:25→05:19)
[2019-03-21 02:49] LABS: #Eosinphils 0.4 thou/uL (0.0-0.7); #Lymphocytes 1.5 thou/uL (1.20-3.40); #Monocytes 0.7 thou/uL (0.11-0.59); #Neutrophils 5.7 thou/uL (1.40-6.50); %Basophils 0.3 % (0.0-1.0); %Eosinophils 4.7 % (0.0-10.0); %Lymphocytes 18.2 % (21.0-51.0); %Neutrophils 68.8 % (42.0-75.0); Hemoglobin 16.1 g/dL (14.0-18.0); Mean Corpuscular HGB CONC 32.8 g/dL (32.0-36.0); Mean Corpuscular Hemoglobin 30.3 pg (27.0-31.0); Mean Corpuscular Volume 92.6 fL (78.0-98.0); Mean Platelet Volume 9.3 fL (7.4-10.4); Platelet Count 164 thou/uL (130-400); RBC Distribution Width 13.4 % (11.5-14.5); Red Blood Cell (RBC) Count 5.29 mill/uL (4.70-6.10); White Blood Cell (WBC) Count 8.3 thou/uL (4.8-10.8)
[2019-03-21] MEDS: Levothyroxine Sodium 125 MCG TAB PO SCH (05:19)
[2019-03-21 05:38] LABS: Calcium 8.8 mg/dL (7.8-10.44); Chloride 105 mmol/L (98-107); Glucose 150 mg/dL (83-110); Sodium 138 mmol/L (136-145)
[2019-03-21 05:40] LABS: Anion Gap 12 mmol/L (10-20); Carbon Dioxide 25 mmol/L (23-31)
[2019-03-21 05:42] LABS: Calc. Creatinine Clearance 120 mL/min (70-130); Estimated GFR-MDRD Greater than 90
[2019-03-21 05:43] LABS: BUN (Urea Nitrogen) 6 mg/dL (8.4-25.7)
--- NOTE | 2019-03-21 08:59 | PRG ---
DATE OF SERVICE: 03/21/2019 SUBJECTIVE: Mr. Damian is currently doing well. He initially was sleeping. He states his pain is nearly gone. His troponin did peak at 5.2. OBJECTIVE: GENERAL: Patient is a pleasant male who is in no acute distress. The patient appears their stated age. VITAL SIGNS: Blood pressure 117/74, pulse 72, temperature afebrile. NEUROLOGIC: The patient is alert and oriented x3 with no focal neurologic deficits. HEENT: Sclerae without icterus. Mouth has moist mucous membranes with normal pallor. NECK: No JVD. Carotid upstroke brisk. No bruits bilaterally. LUNGS: Clear to auscultation with unlabored respirations. BACK: No scoliosis or kyphosis. CARDIAC: Regular rate and rhythm with normal S1 and S2. No S3 or S4 noted. No significant rubs, murmurs, thrills, or gallops noted throughout the precordium. PMI is not displaced. There is no parasternal heave. ABDOMEN: Soft, nontender, nondistended. No peritoneal signs present. No hepatosplenomegaly. No abnormal striae. EXTREMITIES: 2+ femoral and 2+ dorsalis pedis pulses. No cyanosis, clubbing, or edema. SKIN: No gross abnormalities. LABORATORY DATA: Pertinent labs as above including a creatinine of 0.8. Hemoglobin 16.1, white blood cell count 8.3. IMPRESSION: 1. Type 1 myocardial infarction. 2. Severe coronary artery disease. 3. Status post bypass surgery. RECOMMENDATIONS: I reviewed Mr. Damian's films once again. He has severe underlying coronary artery disease. Vessels appear very small. He initially had a graft with an OR that was occluded in November of 2018. This could not be revascularized due to heavy thrombus formation. At this point, we will continue current medical therapy. Continue IV nitroglycerin in addition to IV heparin. Continue aspirin and Plavix. We will add p.o. Imdur in addition to Ranexa. May also consider low-dose Xarelto at 2.5 mg one p.o. b.i.d., which has shown some benefit for underlying severe coronary artery disease. Job ID: [id number]
[2019-03-21] MEDS ORDERED: Rivaroxaban 2.5 MG TAB PO SCH (09:00)
[2019-03-21] MEDS: Clopidogrel Bisulfate 75 MG TAB PO SCH (09:38)
[2019-03-21] MEDS: Atorvastatin Calcium 40 MG TAB PO SCH (09:38)
[2019-03-21] MEDS: Famotidine 20 MG TAB PO SCH ×2 (09:38→20:31)
[2019-03-21] MEDS: Finasteride 5 MG TAB PO SCH (09:39)
[2019-03-21] MEDS: Metoprolol Tartrate 25 MG TAB PO SCH ×2 (09:39→20:32)
[2019-03-21] MEDS: Aspirin 325 mg Enteric Coated Tablet PO SCH (09:49)
[2019-03-21] MEDS: Heparin 10,000 UNITS/ 10 ML VIAL SLOW IVP SCH ×2 (09:50→21:21)
[2019-03-21] MEDS: Nitroglycerin 0.6mg/Hour PATCH TD SCH (09:55)
--- NOTE | 2019-03-21 09:57 | PRG ---
DATE OF SERVICE: 03/21/2019 SUBJECTIVE: The patient says he is feeling better. The pain in his jaws has essentially resolved, maybe has a little bit of pressure sensation in his chest, but otherwise feeling well. Eating breakfast. No other complaints. OBJECTIVE: VITAL SIGNS: Temperature is 98.6, blood pressure 117/74, O2 saturation 96% on 2 L nasal cannula. GENERAL APPEARANCE: Age-appropriate male, in no distress, sitting up comfortably, eating breakfast, conversant. HEENT: PERRL. No OP lesions. NECK: Supple and symmetric. HEART: Regular rate and rhythm without murmurs, gallops, or rubs. LUNGS: Clear bilaterally with no wheezes or rales. ABDOMEN: Soft, nontender, and nondistended. Positive bowel sounds. No masses. No organomegaly. EXTREMITIES: No cyanosis, clubbing, or edema. LABORATORY DATA: Chemistries normal with glucose 150. Troponin up to 5.218. CBC normal. IMPRESSION AND PLAN: 1. Pmo-WE-torgpavbc myocardial infarction in a patient with disease. It is only amenable to medical management. No interventions. Dr. Medrano saw the patient this morning, converting him off the heparin drip back onto Xarelto and starting him on a nitroglycerin patch and increasing his metoprolol dose to 50 mg b.i.d. with anticipation of the patient likely discharging tomorrow. 2. Coronary artery disease as above. 3. Hypertension. Again, increasing metoprolol. 4. Hyperlipidemia. Continue statin. 5. Hypothyroidism. Continue home dose of levothyroxine. 6. Diabetes mellitus. Again, blood sugars are adequate without medical intervention to this point, and the patient is happy with that plan. Job ID: [id number]
--- NOTE | 2019-03-21 14:26 | PDOC.PALCO ---
Palliative Care Consult - Consult Details Requesting Physician: Dr Evans Reason for Consult: family support Family Members Present: none - Pertinent HPI 73 year old male who had done some work at home and awoke at 5 am 10/8 with pain to right neck and jaw radiating to chest, peaked at a 8/10. He drive himself to the hospital and nitro was placed on him, no relief. Did receive relief with fentanyl. Evaluation in the emergency room identified ST elevation myocardial infarction, hypertension admitted to CCU for further management. is disables and Mr Damian is the primary caregiver. - Pertinent PMH CAD with identified multi vessel disease, DM, Hypothryoid, hypertension, cva - Social History Smoking Status: Never smoker Smoking: no tobacco exposure Alcohol Use: none Drug Use History: none Living Situation: - Medications MAR Reviewed: Yes - Allergies Allergies/Adverse Reactions: Allergies Allergy/AdvReac Type Severity Reaction Status Date / Time iodine Allergy Verified 11/19/18 21:48 shellfish derived Allergy Verified 03/20/19 18:00 - Subjective Awake, cheerful. Denies any specific complaints in ROS. - Objective Vital Signs: Vital Signs - Most Recent Temp Pulse Resp BP Pulse Ox 98.2 F 95 03/21/19 12:00 03/21/19 08:00 Palliative Performance Scale: 50 - Physical Exam Constitutional: NAD HEENT: PERRLA, moist MMs, EOMI Respiratory: no wheezing, clear to auscultation bilateral, unlabored breathing Cardiovascular: RRR, no significant murmur Gastrointestinal: soft, non-tender, positive bowel sounds Musculoskeletal: pulses present Neurological: moves all 4 limbs Psychiatric: normal affect, A&O x 3 Skin: no rash, normal turgor, cap refill <2 seconds - Problem List (1) Palliative care encounter Code(s): Z51.5 - ENCOUNTER FOR PALLIATIVE CARE Current Visit: Yes Status: Acute (2) NSTEMI (non-ST elevated myocardial infarction) Code(s): I21.4 - NON-ST ELEVATION (NSTEMI) MYOCARDIAL INFARCTION Current Visit : No Status: Acute (3) CAD (coronary artery disease) Code(s): I25.10 - ATHSCL HEART DISEASE OF [place] CORONARY ARTERY W/O ANG PCTRS Current Visit: No Status: Chronic (4) Hypertension Code(s): I10 - ESSENTIAL (PRIMARY) HYPERTENSION Current Visit: No Status: Chronic (5) Obesity (BMI 30.0-34.9) Code(s): E66.9 - OBESITY, UNSPECIFIED Current Visit: No Status: Chronic - Plan/Recommendations Plan: Initial visit with patient, gave short life review. Patient states his is disabled and goes to rehab/therapy twice a week. Strong juan luis and involvement in his judaism. Initiated conversation in relation to resuscitation status. In addressing supportive needs Mr Damian states his judaism fellowship is active in helping he and his . Palliative Care will continue to follow and further identify any measures that could provide support to patient as well as establish goals of care in line with his disease trajectory and health status. [60] minutes spent on this encounter with >50% of the time in counseling and coordination of care. Thank you for this very appropriate consult.
--- NOTE | 2019-03-21 14:29 | CON ---
DATE OF CONSULTATION: 03/21/2019 SERVICE: Pulmonary Medicine. REASON FOR CONSULTATION: ICU patient. HISTORY OF PRESENT ILLNESS: The patient is a 73-year-old white male with past medical history significant for severe coronary artery disease. He presented to the hospital with a more severe than usual chest discomfort. Prior to this, he was in his usual state of health. He denies any recent fevers, chills, cough, sputum production, nausea, vomiting, shortness of breath, dyspnea on exertion, or orthopnea. He did not have any hot red swollen joints or new rashes. Either way, in the Emergency Department, he was discovered to have a non-ST elevation [place]. He is initially on a heparin drip. He was also put on nitroglycerin drip for the discomfort he was having. Currently, he is chest pain free. Overnight, he has put on a little bit of oxygen because he had intermittent desaturation associated with sleep apnea. This was witnessed at bedside. I talked to him about some of the symptoms. He has a horrendous sleepiness during the daytime with the sleepiness index of 14, nocturia x4, and unrefreshing sleep. He does not want to pursue a polysomnogram; however. We spent a great deal of time talking about the risks associated with untreated sleep apnea, which is [id number], including sudden cardiac , atrial fibrillation, dementia, stroke, and kidney problems. Additionally, he understands that his sleepiness during the daytime is likely directly correlates to his sleep apnea. Either way, he is fully uninterested in pursuing a polysomnogram. PAST MEDICAL HISTORY: 1. Coronary artery disease. 2. Hypothyroidism. 3. Type 2 diabetes mellitus. 4. Hypertension. 5. Dyslipidemia. 6. Obstructive sleep apnea, strongly suspected. PAST SURGICAL HISTORY: Coronary artery bypass graft x5 vessels. FAMILY HISTORY: Extensive coronary artery disease is present in father. SOCIAL HISTORY: Negative for alcohol, tobacco, or illicit drug use. He is a primary caregiver for his disabled . She is basically completely dependent on his assistance. He denies any exposure to chemicals, dust, asbestos, or tuberculosis at this time. ALLERGIES: IODINE AND CRAB. MEDICATIONS: List of his inpatient medications was reviewed. No specific updates were made at this time. REVIEW OF SYSTEMS: General, head, ears, eyes, nose, throat, cardiovascular, respiratory, GI, , musculoskeletal, neurologic, and skin are negative except as mentioned in the HPI. PHYSICAL EXAMINATION: VITAL SIGNS: Afebrile, pulse 72, blood pressure 135/81, respirations 7, and saturation 96% on room air. GENERAL: The patient is awake and alert, in no apparent distress. LUNGS: Wonderful air entry. There is no prolonged expiratory phase or wheezing present. HEART: Normal rate. Regular. ABDOMEN: Soft, nontender, and nondistended. Bowel sounds positive. MUSCULOSKELETAL: No cyanosis or clubbing. No pitting in the bilateral lower extremities. NEUROLOGIC: Grossly nonfocal. LABORATORY DATA: WBC 8.3, hemoglobin 16.1, and platelets 164,000. PTT 62. Basic metabolic profile is unremarkable. Troponin continues to trend upward to 5.2. Liver function studies were unremarkable. IMAGING: CTA of the chest demonstrates no evidence of a pulmonary embolism. There is no acute cardiopulmonary abnormality otherwise identified. Chest x-ray demonstrates no acute cardiopulmonary abnormality. ASSESSMENT: 1. Coronary artery disease. 2. Srp-CP-spshfjawj myocardial infarction. 3. Obstructive sleep apnea, strongly suspected. DISCUSSION AND PLAN: The patient is at this point, chest pain-free. He has been converted off the nitroglycerin drip on to a nitroglycerin patch. We had a very long discussion about the risks of untreated [id number] sleep apnea. That being said, he is absolutely not interested in pursuing a polysomnogram. Pulmonary will continue to follow while the patient remains in this location, but he will likely be a candidate for discharge in the morning provided that he remains chest pain free. Dr. Gibbs has an established relationship with Mr. Damian, and will assume coverage in the morning. 70 minutes have been devoted to this patient in various activities. I personally reviewed all imaging studies and laboratory data noted within this document. For fifty percent of this time, I was interacting with the patient at the bedside or coordinating care with the care team. For the remainder of the time I was immediately available to the patient in the hospital unit. Job ID: [id number] MTDD
[2019-03-21] MEDS: Heparin 25,000 units/D5W 500 ML IVPB SCH (17:53)
[2019-03-22] MEDS ORDERED: Mag-Al Plus 1200 MG/1200 MG/120 MG/30 ML UDCUP PO PRN (02:39)
[2019-03-22] MEDS: Levothyroxine Sodium 125 MCG TAB PO SCH (06:34)
[2019-03-22] MEDS: Nitroglycerin 0.6mg/Hour PATCH TD SCH (08:50)
[2019-03-22] MEDS: Rivaroxaban 2.5 MG TAB PO SCH ×2 (08:51→21:58)
[2019-03-22] MEDS: Metoprolol Tartrate 25 MG TAB PO SCH ×2 (08:52→21:57)
[2019-03-22] MEDS: Clopidogrel Bisulfate 75 MG TAB PO SCH (08:53)
[2019-03-22] MEDS: Famotidine 20 MG TAB PO SCH ×2 (08:54→21:58)
[2019-03-22] MEDS: Atorvastatin Calcium 40 MG TAB PO SCH (08:55)
[2019-03-22] MEDS: Finasteride 5 MG TAB PO SCH (08:56)
[2019-03-22] MEDS: Aspirin 325 mg Enteric Coated Tablet PO SCH (08:57)
--- NOTE | 2019-03-22 09:49 | PRG ---
DATE OF SERVICE: 03/22/2019 SUBJECTIVE: Mr. Damian is doing okay except for some pain in his neck, which he says is helped by urinating. He is off his nitroglycerin drip. OBJECTIVE: VITAL SIGNS: His temperature is 98.3, pulse 56, blood pressure 126/71, and O2 saturation 97%. HEENT: Unremarkable. NECK: No adenopathy or JVD. LUNGS: Clear anteriorly. CARDIAC: S1 and S2, regular. ABDOMEN: Soft. EXTREMITIES: No edema. LABORATORY DATA: No new labs were done today. ASSESSMENT: 1. Non ST-segment elevation myocardial infarction. 2. Chest pain. PLAN: He can be transferred to the floor and continue medical therapy for this. Apparently, there is no other mechanism to intervene. Pulmonary will sign off. Please recall if further assistance needed. Job ID: [id number]
--- NOTE | 2019-03-22 18:09 | PRG ---
DATE OF SERVICE: 03/22/2019 SUBJECTIVE: Mr. Damian is doing well. He did have episodes of chest pain early this morning. It resolved after urinating. He otherwise is in good spirits. OBJECTIVE: GENERAL: Patient is a pleasant man, who is in no acute distress. The patient appears their stated age. VITAL SIGNS: Blood pressure 119/73, pulse 58, and temperature 96.9. NEUROLOGIC: The patient is alert and oriented x3 with no focal neurologic deficits. HEENT: Sclerae without icterus. Mouth has moist mucous membranes with normal pallor. NECK: No JVD. Carotid upstroke brisk. No bruits bilaterally. LUNGS: Clear to auscultation with unlabored respirations. BACK: No scoliosis or kyphosis. CARDIAC: Regular rate and rhythm with normal S1 and S2. No S3 or S4 noted. No significant rubs, murmurs, thrills, or gallops noted throughout the precordium. PMI is not displaced. There is no parasternal heave. ABDOMEN: Soft, nontender, nondistended. No peritoneal signs present. No hepatosplenomegaly. No abnormal striae. EXTREMITIES: 2+ femoral and 2+ dorsalis pedis pulses. No cyanosis, clubbing, or edema. SKIN: No gross abnormalities. PERTINENT LABORATORY DATA: Hemoglobin 16.1 and peak troponin 5.2. IMPRESSION: 1. Severe coronary artery disease. 2. Status post bypass surgery. 3. Status post failed intervention. RECOMMENDATIONS: Mr. Damian has a severe inoperable coronary artery disease. We would recommend continue medical therapy. Changes in medications have been done. He will be okay from my standpoint to discharge home tomorrow as long as he is stable. We will decrease aspirin 81 q.a.m. Continue atorvastatin, Plavix, low-dose Xarelto 2.5 mg one p.o. b.i.d. would be added in addition to Ranexa. We will also continue beta-otf therapy and Imdur. Otherwise from my standpoint, I have no further recommendations. Job ID: [id number]
[2019-03-22 18:42] LABS: Hemoglobin 15.4 g/dL (14.0-18.0); Platelet Count 180 thou/uL (130-400)
--- NOTE | 2019-03-22 22:30 | PDOC.HOSPP ---
- Subjective Subjective: Feels great in the afternoon. Had some jaw pain that was resolved with voiding earlier. - Objective Vital Signs & Weight: Vital Signs (12 hours) Temp Pulse Resp BP Pulse Ox 03/22/19 15:11 97 03/22/19 15:02 96.9 F L 58 L 16 119/73 97 03/22/19 14:10 97.5 F L 72 18 132/76 96 03/22/19 10:45 95 Weight Weight 225 lb 12.054 oz Most Recent Monitor Data Heart Rate from ECG 60 NIBP 109/64 NIBP BP-Mean 79 Respiration from ECG 14 SpO2 95 I&O: 03/21/19 03/22/19 03/23/19 06:59 06:59 06:59 Intake Total 715 1596.2 770 Output Total 1850 2250 420 Balance -1135 -653.8 350 Result Diagrams: 03/22/19 18:33 03/21/19 04:31 Hospitalist ROS - Medication Medications: Active Medications Generic Name Dose Route Start Last Admin Trade Name Freq PRN Reason Stop Dose Admin Aspirin 325 mg 03/21/19 09:00 03/22/19 08:57 Ecotrin PO 325 mg DAILY SHAJI Administration Atorvastatin Calcium 40 mg 03/21/19 09:00 03/22/19 08:55 Lipitor PO 40 mg DAILY SHAJI Administration Clopidogrel Bisulfate 75 mg 03/21/19 09:00 03/22/19 08:53 Plavix PO 75 mg DAILY SHAJI Administration Famotidine 20 mg 03/20/19 21:00 03/22/19 21:58 Pepcid PO 20 mg BID SHAJI Administration Finasteride 5 mg 03/21/19 09:00 03/22/19 08:56 Proscar PO 5 mg DAILY SHAJI Administration Isosorbide Mononitrate 60 mg 03/21/19 09:00 03/22/19 08:54 Imdur PO 60 mg DAILY SHAJI Administration Levothyroxine Sodium 125 mcg 03/21/19 06:00 03/22/19 06:34 Synthroid PO 125 mcg 0600 SHAJI Administration Metoprolol Tartrate 50 mg 03/21/19 08:39 03/22/19 21:57 Lopressor PO 50 mg BID SHAJI Administration Morphine Sulfate 2 mg 03/21/19 00:07 03/21/19 05:19 Morphine SLOW IVP 2 mg Q4H PRN Administration Chest Pain Nitroglycerin 1 patch 03/21/19 09:00 03/22/19 08:50 Nitro-Dur 0.6mg/Hr Patch TD 1 patch DAILY SHAJI Administration Pantoprazole Sodium 40 mg 03/21/19 09:00 03/22/19 08:53 Protonix PO 40 mg DAILY SHAJI Administration Ranolazine 500 mg 03/20/19 21:00 03/22/19 21:57 Ranexa PO 500 mg BID SHAJI Administration Rivaroxaban 2.5 mg 03/22/19 09:00 03/22/19 21:58 Xarelto PO 2.5 mg BID SHAJI Administration Sodium Chloride 10 ml 03/20/19 21:00 03/22/19 21:58 Flush - Normal Saline IVF 10 ml Q12HR SHAJI Administration Tramadol HCl 25 mg 03/20/19 18:15 03/20/19 20:40 Ultram PO 25 mg QID PRN Administration Moderate Pain (4-6) - Exam General Appearance: NAD, awake alert Heart: RRR, no murmur, no gallops, no rubs, normal peripheral pulses Respiratory: CTAB, no wheezes, no rales, no ronchi, normal chest expansion, no tachypnea, normal percussion Gastrointestinal: soft, non-tender, non-distended, normal bowel sounds, no palpable masses, no hepatomegaly, no splenomegaly, no bruit Skin: normal turgor Musculoskeletal: normal tone, normal strength, no muscle wasting Psychiatric: normal affect, normal behavior, A&O x 3 Hosp A/P (1) NSTEMI (non-ST elevated myocardial infarction) Code(s): I21.4 - NON-ST ELEVATION (NSTEMI) MYOCARDIAL INFARCTION Status: Acute (2) CAD (coronary artery disease) Code(s): I25.10 - ATHSCL HEART DISEASE OF [place] CORONARY ARTERY W/O ANG PCTRS Status: Chronic (3) Dyslipidemia Code(s): E78.5 - HYPERLIPIDEMIA, UNSPECIFIED Status: Chronic (4) H/O: CVA (cerebrovascular accident) Code(s): Z86.73 - PRSNL HX OF TIA (TIA), AND CEREB INFRC W/O RESID DEFICITS Status: Chronic (5) Hypertension Code(s): I10 - ESSENTIAL (PRIMARY) HYPERTENSION Status: Chronic (6) Hypothyroidism Code(s): E03.9 - HYPOTHYROIDISM, UNSPECIFIED Status: Chronic (7) Obesity (BMI 30.0-34.9) Code(s): E66.9 - OBESITY, UNSPECIFIED Status: Chronic - Plan He is doing as well as one could hope. Transitioned to oral meds and patch. Will transfer to tele. If ok, DC in am with low dose xarelto, nitro, ranexa. DW Dr. Medrano.
[2019-03-23] MEDS: Levothyroxine Sodium 125 MCG TAB PO SCH (05:44)
[2019-03-23] MEDS: Clopidogrel Bisulfate 75 MG TAB PO SCH (08:31)
[2019-03-23] MEDS: Nitroglycerin 0.6mg/Hour PATCH TD SCH (08:31)
[2019-03-23] MEDS: Atorvastatin Calcium 40 MG TAB PO SCH (08:31)
[2019-03-23] MEDS: Metoprolol Tartrate 25 MG TAB PO SCH (08:32)
[2019-03-23] MEDS: Finasteride 5 MG TAB PO SCH (08:32)
[2019-03-23] MEDS: Famotidine 20 MG TAB PO SCH (08:33)
[2019-03-23] MEDS: Rivaroxaban 2.5 MG TAB PO SCH (08:37)
[2019-03-23] MEDS ORDERED: Aspirin 81 mg Enteric Coated Tablet PO SCH (09:00)
--- NOTE | 2019-03-23 11:18 | PRG ---
DATE OF SERVICE: 03/23/2019 SUBJECTIVE: Mr. Damian is doing well. No recurrent episodes of chest pain. OBJECTIVE: VITAL SIGNS: Blood pressure 121/65, pulse 58, and temperature 97.2. LUNGS: Clear to auscultation. HEART: Regular rate and rhythm. ABDOMEN: Soft, nontender, nondistended. EXTREMITIES: No edema. PERTINENT LABORATORY DATA: None today. IMPRESSION: 1. Type 2 myocardial infarction. 2. Status post bypass surgery. 3. Severe inoperable coronary artery disease. RECOMMENDATIONS: Mr. Damian is currently doing well. We will continue current medical therapy. He is currently on aspirin, atorvastatin, Plavix, isosorbide, metoprolol, and Ranexa. I have added low-dose Xarelto. Okay from my standpoint to discharge home with close outpatient followup. Job ID: [id number]
[2019-03-23 11:55] VITALS: BP 128/66; TEMP 98
[2019-03-24] MEDS ORDERED: Aspirin 81 mg Enteric Coated Tablet PO SCH (09:00)
== END 2019-03-23 13:26 | disposition home or self-care (01) | DRG 282 ==
LOC: SCSER 09:29 → CCU 15:36 → 2NO 03-22 14:26
PROVIDERS: ADMIT Internal Medicine; ATTEND Internal Medicine
DX: I21.4 Non-ST elevation (NSTEMI) myocardial infarction (principal); I25.10 Atherosclerotic heart disease of native coronary artery without angina pectoris; E03.9 Hypothyroidism, unspecified; Z51.5 Encounter for palliative care; E11.9 Type 2 diabetes mellitus without complications; I10 Essential (primary) hypertension; E78.5 Hyperlipidemia, unspecified; G47.33 Obstructive sleep apnea (adult) (pediatric); E66.9 Obesity, unspecified; Z95.1 Presence of aortocoronary bypass graft; Z79.82 Long term (current) use of aspirin; Z79.02 Long term (current) use of antithrombotics/antiplatelets; Z87.891 Personal history of nicotine dependence; Z91.041 Radiographic dye allergy status; Z91.013 Allergy to seafood; Z68.28 Body mass index [BMI] 28.0-28.9, adult; Z86.73 Personal history of transient ischemic attack (TIA), and cerebral infarction without residual deficits
CPT/HCPCS: 36415; 71045; 71275; 80048; 80053; 82553; 83880; 84484; 85014; 85018; 85025; 85049; 85379; 85730; 93005; 94760; 96365; 96366; 96372; 96375; J1644; J1650; J2270; J2405; J3010; Q9967

== ENCOUNTER 2020-10-21 15:46 | Outpatient (CLI) | payer MEDICARE | END 2020-10-21 15:47 | disposition home or self-care (01) | LOC: MRI 15:46 | PROVIDERS: ATTEND Family Medicine | DX: M51.16 Intervertebral disc disorders with radiculopathy, lumbar region (principal); G89.4 Chronic pain syndrome; M48.061 Spinal stenosis, lumbar region without neurogenic claudication; M47.26 Other spondylosis with radiculopathy, lumbar region; M47.817 Spondylosis without myelopathy or radiculopathy, lumbosacral region; M47.815 Spondylosis without myelopathy or radiculopathy, thoracolumbar region | CPT/HCPCS: 72148 ==